=== PATIENT | female | born 1955 | race Caucasian/White ===

== ENCOUNTER 2022-06-13 15:06 | Emergency (ER) | payer MEDICARE, SELFPAY ==
[2022-06-13] VITALS (28 sets, daily range): BP systolic 122–176; BP diastolic 58–84; PULSE 65–84; RESP 24; TEMP 36.5; O2SAT 93–98; BMI 34.9
--- NOTE | 2022-06-13 15:35 | ED.EXTPRO ---
HPI - Extremity Problem General Chief complaint: Extremity Problem,Nontraumatic Stated complaint: post op knee 3 weeks/ Lt. knee swelling/red/pain Time Seen by Provider: 06/13/22 15:35 Source: patient Mode of arrival: Wheelchair History of Present Illness HPI Narrative: 66F non smoker with history hypertension, hyperlipidemia, asthma, GERD and chronic back pain as well as recent of Left total knee arthroplasty at [facility] in [place] by Dr. Lee (3 weeks ago) presents for evaluation about 1 week increased swelling and pain in her left knee that is now feeling tight. She denies any falls, twists or traumatic injuries. She is had no drainage and states the incision continues to look well. She is had increasing pain, particularly with ambulation and has decreased range of motion through the knee compared to her postoperative follow-up. She still does have about 45? of passive and active flexion. She denies any red streaks up her leg. She does feel the pain down into her calf. She denies any fever, chills nor nausea or vomiting Related Data Allergies Allergy/AdvReac Type Severity Reaction Status Date / Time atorvastatin [From Lipitor] Allergy Verified 06/13/22 15:26 Beta-Blockers Allergy Verified 06/13/22 15:26 (Beta-Adrenergic Bloc cat dander Allergy Verified 06/13/22 15:26 cucumber Allergy Verified 06/13/22 15:26 duloxetine Allergy Verified 06/13/22 15:26 oxycodone [From Percocet] Allergy Verified 06/13/22 17:06 paroxetine [From Paxil] Allergy Verified 06/13/22 15:26 prochlorperazine Allergy Verified 06/13/22 15:26 [From Compazine] promethazine Allergy Verified 06/13/22 15:26 Sulfa (Sulfonamide Allergy Verified 06/13/22 15:26 Antibiotics) Review of Systems Review of Systems Narrative: GENERAL: See HPI HEENT: Denies sinus pain, ear pain, sore throat, difficulty swallowing, dizziness. RESPIRATORY: Denies dyspnea, cough, wheezing, hemoptysis, sputum. CARDIOVASCULAR: Denies chest pain, palpitations, orthopnea, edema, GASTROINTESTINAL: Denies nausea, vomiting, abdominal pain, diarrhea, constipation, melena. : Denies dysuria, frequency, incontinence, hematuria, urinary retention. MUSCULOSKELETAL: See HPI SKIN: See HPI NEUROLOGIC: Denies weakness, headache, numbness, change in speech, confusion, seizures, incoordination. PSYCHIATRIC: No concerning psychosocial issues. 12 point review of systems is negative except for those stated above Patient History Social History Smoking Status: Former smoker Smoking Status: Former smoker alcohol intake frequency: 0-2 drinks per day Alcohol type: wine Substance Use Type: does not use Exam Narrative Exam Narrative: GENERAL: 66 [] year old patient appears stated age. Well-developed patient, in mild distress. HEAD: Atraumatic. Normocephalic. EYES: Pupils equal round and reactive. Extraocular motions intact. No scleral icterus. No injection or drainage. ENT: Nose without bleeding, purulent drainage. Throat without erythema, tonsillar hypertrophy or exudate. Airway patent. NECK: Trachea midline. Non tender CARDIOVASCULAR: Regular rate and rhythm without murmurs, gallops, or rubs. RESPIRATORY: Clear to auscultation. Breath sounds equal bilaterally. No wheezes, rales, or rhonchi. GASTROINTESTINAL: Abdomen soft, non-tender, nondistended. EXTREMITIES: Left knee pain, swelling, mild erythema, most notable medial aspect of the knee, no lymphangitis, mild effusion. Incision is clean, dry and intact. Decreased range of motion secondary to what patient reports as fullness rather than significant pain, negative Homans sign, negative calf squeeze BACK: Nontender without deformity or crepitance. No flank tenderness. NEURO: AOx3. SKIN: No rash or erythema of visible areas Initial Vital Signs Initial Vital Signs: Vital Signs Temperature 97.7 F 06/13/22 15:26 Pulse Rate 81 06/13/22 15:26 Respiratory Rate 24 06/13/22 15:26 Blood Pressure 125/59 L 06/13/22 15:26 Pulse Oximetry 98 06/13/22 15:26 Oxygen Delivery Method 06/13/22 15:26 Course Orders Ordered: ED Orders 06/13/22 15:43 US periph venous low extrem lt Stat XR knee LT 1to2V Stat 06/13/22 17:30 Cell Count w Diff Body Fluid Stat 06/13/22 17:43 BMP [Basic Metabolic Panel] Stat Body Fluid Culture Stat CBC Auto Diff [Complete Blood Count AUTO DIFF] Stat CRP [C-Reactive Protein Quant] Stat ESR [Erythrocyte Sedimentation Rate] Stat Discontinued Medications Acetaminophen (Acetaminophen 325 Mg Tablet) 975 mg PO NOW ONE Stop: 06/13/22 17:09 Last Admin: 06/13/22 17:17 Dose: 975 mg Documented By: RB Consultations Consultation #1: discussed with Dr. Lee (ortho at [facility]), he is in agreement with joint arthrocentesis. Will call back with results. Also, recommends CBC, BMP, ESR, CRP Time: 17:15 Vital Signs Vital signs: Vital Signs - 8 hr 06/13/22 15:26 06/13/22 15:54 06/13/22 15:42 Temperature 97.7 F Pulse Rate 81 Pulse Rate [Left Dorsalis Pedis] 74 Respiratory Rate 24 Blood Pressure 125/59 L 147/83 H Pulse Oximetry 98 Oxygen Delivery Method Room Air 06/13/22 15:42 06/13/22 16:00 06/13/22 16:10 Temperature Pulse Rate 84 77 76 Pulse Rate [Left Dorsalis Pedis] Respiratory Rate Blood Pressure Pulse Oximetry 96 96 97 Oxygen Delivery Method 06/13/22 16:12 06/13/22 16:12 06/13/22 16:20 Temperature Pulse Rate 82 69 Pulse Rate [Left Dorsalis Pedis] Respiratory Rate Blood Pressure 128/66 Pulse Oximetry 97 97 Oxygen Delivery Method 06/13/22 16:21 06/13/22 16:21 06/13/22 16:30 Temperature Pulse Rate 69 Pulse Rate [Left Dorsalis Pedis] Respiratory Rate Blood Pressure 132/66 123/59 L Pulse Oximetry 98 Oxygen Delivery Method 06/13/22 16:30 06/13/22 16:40 06/13/22 16:40 Temperature Pulse Rate 71 70 Pulse Rate [Left Dorsalis Pedis] Respiratory Rate Blood Pressure 122/59 L Pulse Oximetry 97 96 Oxygen Delivery Method 06/13/22 16:50 06/13/22 16:50 06/13/22 17:00 Temperature Pulse Rate 70 Pulse Rate [Left Dorsalis Pedis] Respiratory Rate Blood Pressure 126/60 127/58 L Pulse Oximetry 97 Oxygen Delivery Method 06/13/22 17:00 06/13/22 17:10 06/13/22 17:10 Temperature Pulse Rate 66 66 Pulse Rate [Left Dorsalis Pedis] Respiratory Rate Blood Pressure 126/61 Pulse Oximetry 97 95 Oxygen Delivery Method 06/13/22 17:20 06/13/22 17:30 06/13/22 17:40 Temperature Pulse Rate 69 69 70 Pulse Rate [Left Dorsalis Pedis] Respiratory Rate Blood Pressure Pulse Oximetry 96 95 94 Oxygen Delivery Method 06/13/22 17:50 06/13/22 17:50 06/13/22 18:00 Temperature Pulse Rate 65 Pulse Rate [Left Dorsalis Pedis] Respiratory Rate Blood Pressure 126/63 123/61 Pulse Oximetry 96 Oxygen Delivery Method 06/13/22 18:00 06/13/22 18:10 06/13/22 18:11 Temperature Pulse Rate 66 67 Pulse Rate [Left Dorsalis Pedis] Respiratory Rate Blood Pressure 149/66 H Pulse Oximetry 96 95 Oxygen Delivery Method 06/13/22 18:11 Temperature Pulse Rate 67 Pulse Rate [Left Dorsalis Pedis] Respiratory Rate Blood Pressure Pulse Oximetry 94 Oxygen Delivery Method MDM - Extremity (Nontraumatic) Lab Data 06/13/22 17:43 06/13/22 17:43 Labs: Lab Results 06/13/22 06/13/22 06/13/22 Range/Units 17:30 17:43 17:43 WBC 7.0 (4.5-11.0) X10^3/uL RBC 3.56 L (4.0-5.2) X10^6/uL Hgb 11.5 L (12.0-16.0) g/dL Hct 33.9 L (36-46) % MCV 95.1 (80-100) fL MCH 32.2 (26-34) PG MCHC 33.8 (30-36) % RDW 14.5 (11.6-14.8) % Plt Count 250 (150-400) X10^3/uL Neut % (Auto) 52.7 (50-75) % Lymph % (Auto) 32.1 (25-40) % [place] % (Auto) 8.7 (3-14) % Eos % (Auto) 5.9 H (2-4) % Baso % (Auto) 0.6 (0-2) % Neut # (Auto) 3700 (8170-5336) /uL Lymph # (Auto) 2200 (6130-5756) /uL [place] # (Auto) 600 (0-900) /uL Eos # (Auto) 400 (0-450) /uL Baso # (Auto) 0 (0-100) /uL Sodium 137 (137-145) mmol/L Potassium 3.5 (3.4-5.1) mmol/L Chloride 99 (98-107) mmol/L Carbon Dioxide 30 (22-32) mmol/L BUN 29 H (7-17) mg/dL Creatinine 0.63 (0.52-1.04) mg/dL Estimated GFR > 60 (>60) mL/min BUN/Creatinine Ratio 46.0 H (6-22) Glucose 125 H (80-110) mg/dL Calcium 8.9 (8.4-10.2) mg/dL C-Reactive Protein < 0.5 (<1.0) mg/dL Fluid Color Yellow Fluid Appearance Hazy Fluid RBC 9158 /uL Fld Tot Nucleated Cell 204 /uL Body Fluid Clot No clots present Imaging Data Extremity x-ray #1: Radiologist's Impression: [address] [address] XRay Report Signed Patient: Cynthia Rodriguez MR#: [id number] : 1955 Acct:[id number] Age/Sex: 66 / F Date of Service: 06/13/22 Loc: ED Accession Number: [id number] ?? Procedure: XR knee LT 1to2V Ordering Provider: Soto Martinez D.O. PROCEDURE:? XR KNEE LT 1TO2V ? INDICATIONS:? pain, swelling, redness, post op 3 weeks ? TECHNIQUE:? 2 views of the knee were acquired.? ? COMPARISON:? [facility], , PERIPH VENOUS LOW EXTREM LT, 06/13/2022, 16:13. ? FINDINGS:? ? Bones:? No fractures or dislocations.? No suspicious bony lesions.? ? Left knee arthroplasty hardware is seen.? No findings of hardware failure or hardware loosening are seen.? ? Soft tissues:? There is a mild joint effusion.? No suspicious soft tissue calcifications. ? ? ? IMPRESSION:? Mild left knee joint effusion. ? Left knee arthroplasty hardware. ? ? Dictated by: Shane Tijerina M.D. on 06/13/2022 at 15:44 ? ? Approved by: Shane Tijerina M.D. on 06/13/2022 at 15:45 ? US - DVT: Radiologist's Impression: Cynthia Rodriguez??66??F??1955 ? Allergy/Adv: atorvastatin, Beta-Blockers (Beta-Adrenergic Bloc, cat dander, cucumber, duloxetine, oxycodone, paroxetine, prochlorperazine, promethazine, Sulfa (Sulfonamide Antibiotics) (More??) Close Vascular Ultrasound (Signed) Shane Tijerina - 06/13/22 Knee X-Ray (Signed) Shane Tijerina - 06/13/22 Knee X-Ray (Cancelled) 06/13/22 Foot X-Ray (Cancelled) 06/13/22 Launch?[place] [address] Ultrasound Report Signed Patient: Cynthia Rodriguez MR#: [id number] : 1955 Acct:[id number] Age/Sex: 66 / F Date of Service: 06/13/22 Loc: ED Accession Number: [id number] ?? Procedure: US periph venous low extrem lt Ordering Provider: Soto Martinez D.O. PROCEDURE:? US PERIPH VENOUS LOW EXTREM LT ? INDICATIONS:? PAIN, EDEMA 3 WEEKS POST LEFT TKA ? TECHNIQUE:? Real-time imaging, as well as color and pulse Doppler interrogation, were performed of the lower extremity deep veins from the inguinal ligament to the popliteal fossa.? ? COMPARISON:? [facility], CR, XR KNEE LT 1TO2V, 06/13/2022, 15:46. ? FINDINGS:? The common femoral, femoral and popliteal veins are normally compressible, and free of intraluminal thrombus.? Color and pulse Doppler demonstrate normal phasic intraluminal flow.? There is normal augmentation response to distal compression maneuver. ? ? IMPRESSION:? ? Negative for deep venous thrombosis. ? ? Dictated by: Shane Tijerina M.D. on 06/13/2022 at 15:43 ? ? Approved by: Shane Tijerina M.D. on 06/13/2022 at 15:44 ? MDM Narrative Medical decision making narrative: CC: 66-year-old female with left knee pain, swelling and redness, increasing over the past week, worse than postoperative follow-up, recent total left knee Complicating co-morbidities: Age, hypertension, hyperlipidemia, asthma, BMI 34.9 Data collected from: Patient Medical records reviewed: None available in our EMR Differential considered, but not limited to: DVT, cellulitis, septic arthritis versus other Exam documented above, pertinent findings include: Pain, swelling, minimal redness left knee. Incision clean, dry and intact Lab Test results independently reviewed as above. Pertinent findings: Imaging studies independently reviewed: X-ray with mild effusion, hardware intact, ultrasound without evidence of DVT Consultations: Dr. Lee (Ortho at [facility]). Labs, imaging reassuring. NO ABX now, short term follow up and typical return precautions Treatments: Tylenol Re-evaluations: Improved after the above Discussion: 66-year-old female 3 weeks removed from left total knee arthroplasty with a few days of increasing pain, swelling and redness. She has increased pain with ambulation and some limited range of motion but can take her knee through about 45 knees of flexion before she states the swelling prevents further motion as opposed to pain. She is had no systemic complaints such as fever, chills nor nausea or vomiting. Multiple diagnoses considered including cellulitis, DVT, septic arthritis. As mentioned above labs are very reassuring and there is no leukocytosis, left shift, elevation in inflammatory markers and only a few 100 total nucleated cells in the synovial fluid. Ultrasound shows no DVT and x-ray shows only a small effusion with intact hardware. No antibiotics indicated at this time, patient counseled in close follow-up and short wick for return with extensive discussion of return precautions. Patient and agree with and understand the plan Disposition: see below, along with detailed discharge instructions that have been reviewed with patient as well as indications for ED re-evaluation and additional outpatient follow up Discharge Plan Departure Patient Disposition: Home Clinical Impression: Post-operative pain Instructions: DI for Knee Pain Activity Restrictions/Additional Instructions: *You have been diagnosed with [left knee pain and swelling, as we discussed your history and physical exam are reassuring and both the blood work and the fluid analysis from your knee are very reassuring would suggest against infection within the joint. Furthermore, your x-ray suggest the hardware is in place and ultrasound rules out clot] *What to do: *Please continue to take your regular medications as directed. *Please expect to hear from Dr. Lee's office either tomorrow, or both and they will let you know how to proceed, likely a follow-up as soon as Sunday *Return to Emergency Department if you should have any new, worsening or concerning symptoms, such as [fever greater than 101 F, shaking chills, worsening pain, persistent vomiting or other bothersome symptoms] Referrals: Telly Dodge DO [Primary Care Provider] - Stand Alone Forms: Patient Portal/API
--- NOTE | 2022-06-13 15:43 | DI.US.S_ITS ---
PROCEDURE: US PERIPH VENOUS LOW EXTREM LT INDICATIONS: PAIN, EDEMA 3 WEEKS POST LEFT TKA TECHNIQUE: Real-time imaging, as well as color and pulse Doppler interrogation, were performed of the lower extremity deep veins from the inguinal ligament to the popliteal fossa. COMPARISON: [facility], CR, XR KNEE LT 1TO2V, 06/13/2022, 15:46. FINDINGS: The common femoral, femoral and popliteal veins are normally compressible, and free of intraluminal thrombus. Color and pulse Doppler demonstrate normal phasic intraluminal flow. There is normal augmentation response to distal compression maneuver. IMPRESSION: Negative for deep venous thrombosis. Dictated by: Shane Tijerina M.D. on 06/13/2022 at 15:43 Approved by: Shane Tijerina M.D. on 06/13/2022 at 15:44
--- NOTE | 2022-06-13 15:43 | DI.RAD.S_ITS ---
PROCEDURE: XR KNEE LT 1TO2V INDICATIONS: pain, swelling, redness, post op 3 weeks TECHNIQUE: 2 views of the knee were acquired. COMPARISON: [facility], , PERIP VENOUS LOW EXTREM LT, 06/13/2022, 16:13. FINDINGS: Bones: No fractures or dislocations. No suspicious bony lesions. Left knee arthroplasty hardware is seen. No findings of hardware failure or hardware loosening are seen. Soft tissues: There is a mild joint effusion. No suspicious soft tissue calcifications. IMPRESSION: Mild left knee joint effusion. Left knee arthroplasty hardware. Dictated by: Shane Tijerina M.D. on 06/13/2022 at 15:44 Approved by: Shane Tijerina M.D. on 06/13/2022 at 15:45
[2022-06-13] MEDS: ACETAMINOPHEN 325 MG TABLET 975 MG PO (17:17)
[2022-06-13 18:22] LABS: Blood Urea Nitrogen 29 mg/dL (7-17); C-Reactive Protein Quant < 0.5 mg/dL (<1.0); Calcium 8.9 mg/dL (8.4-10.2); Carbon Dioxide 30 mmol/L (22-32); Chloride 99 mmol/L (98-107); Estimated Glomerular Filt Rate > 60 mL/min (>60); Glucose 125 mg/dL (80-110); HEMOLYSIS < 15 (0-50); Potassium 3.5 mmol/L (3.4-5.1); Sodium 137 mmol/L (137-145)
[2022-06-13 18:27] LABS: Body Fluid Red Blood Cells 9158 /uL; Body Fluid Tot Nucleated Cells 204 /uL
[2022-06-13 18:38] LABS: Add Manual Diff / Slide Review NO; Basophils Absolute Auto 0 /uL (0-100); Basophils Percent Auto 0.6 % (0-2); Eosinophils Absolute Auto 400 /uL (0-450); Eosinophils Percent Auto 5.9 % (2-4); Hematocrit 33.9 % (36-46); Hemoglobin 11.5 g/dL (12.0-16.0); Lymphocytes Absolute Auto 2200 /uL (1100-4500); Lymphocytes Percent Auto 32.1 % (25-40); Mean Corpuscular HGB Conc 33.8 % (30-36); Mean Corpuscular Hemoglobin 32.2 PG (26-34); Mean Corpuscular Volume 95.1 fL (80-100); Monocytes Absolute Auto 600 /uL (0-900); Monocytes Percent Auto 8.7 % (3-14); Neutrophils Absolute Auto 3700 /uL (1500-7000); Neutrophils Percent Auto 52.7 % (50-75); Platelet Count 250 X10^3/uL (150-400); Red Blood Cell Count 3.56 X10^6/uL (4.0-5.2); Red Cell Distribution Width 14.5 % (11.6-14.8)
[2022-06-13 18:44] LABS: Body Fluid Appearance HAZY; Body Fluid Clotted? NO CLOTS PRESENT; Body Fluid Color YELLOW
[2022-06-13 19:16] LABS: Mononuclear WBC Body Fluid 64 %; Polynuclear WBC Body Fluid 36 %
[2022-06-13 19:17] LABS: Erythrocyte Sedimentation Rate 31 MM/HR (0-20)
== END 2022-06-13 19:17 | disposition home or self-care (01) ==
PROVIDERS: Emergency Provider Emergency Medicine; PCP Family Medicine
DX: G89.18 Other acute postprocedural pain (principal); R60.0 Localized edema; Z96.652 Presence of left artificial knee joint
CPT/HCPCS: 36415; 73560; 80048; 85025; 85651; 86140; 87070; 87075; 87205; 89051; 93971; 99284

== ENCOUNTER 2022-09-03 10:15 | Emergency (ER) | payer BC, MEDICARE, SELFPAY ==
[2022-09-03 10:43] VITALS: BP 142/65; PULSE 60; RESP 16; TEMP 36.6; O2SAT 95; BMI 35.3
[2022-09-03 11:08] LABS: Appearance Urine UA CLEAR; Bilirubin Urine UA NEGATIVE (NEGATIVE); Color Urine UA YELLOW; Glucose Urine UA NEGATIVE (Negative); Ketones Urine UA NEGATIVE (NEGATIVE); Leukocyte Esterase Urine UA NEGATIVE (NEGATIVE); Nitrite Urine UA NEGATIVE (Negative); Occult Blood Urine UA NEGATIVE (Negative); Protein Urine UA NEGATIVE (Negative); Urobilinogen Urine UA 0.2 E.U./dL (0.2)
[2022-09-03 11:10] LABS: pH Urine UA 7.5 (4.5-8.0)
[2022-09-03 11:28] LABS: Bacteria Urine Occasional (0-1); Culture Indicated Urine Cult Not Indicated; RBC Urine None Seen (0-5/HPF); Squamous Epithelial Cell Urine 1-5 /HPF (0-5/HPF); WBC Urine 0-1/HPF (0-5/HPF)
--- NOTE | 2022-09-03 12:52 | PC.NURSE ---
pt reports she has had some mild back pain for about one week on the right side but she went dancing yesterday and suddenly at 1600 the pain was unbearable. she tried heat and tylenol with little relief. states urine and bowels have been normal. sitting makes her feel worse, laying down feels better.
[2022-09-03] MEDS: KETOROLAC 30 MG/ML VIAL IM (13:00)
--- NOTE | 2022-09-03 13:44 | ED_ITS ---
HPI - Back Pain/Injury <Bonnie Lee PA-C - Last Filed: 09/03/22 20:13> General Chief Complaint: Back Pain/Injury Stated Complaint: flank back and abd pain Time Seen by Provider: 09/03/22 12:41 History of Present Illness HPI Narrative: Patient is a 66-year-old female with chronic conditions of high blood pressure, hyperlipidemia, asthma, reflux and previous diagnosis of RCC and previous kidney stones presenting for evaluation of sudden onset of right flank pain starting at 4:00 p.m. yesterday. She states that the only thing she can think of doing di fferently prior was dancing with a friend 1 week ago. She denies any change to her bowel movements nor pain with urination or blood on urination. She says the pain starts in her right lower back and says it radiates straight through into her right groin. She reports she did have a kidney stone several years ago. Of note, she did have left knee surgery this past May and says she favors her left knee due to continued swelling and pain. She denies fever, body aches or chills. She denies any numbness radiating into her right leg nor abdominal pain. She says that lying down helps the pain feel better as well as standing and leaning forward. She reports the ketorolac given to her helped take the edge off her pain. She notes that her mother and her sister were both diagnosed with RCC and had their kidney taken out. She says that at that time 2 years ago, she was diagnosed as well, but the urologist wanted to monitor her instead of taking action at that time. She says she was unable to follow up for the past 2 years because she got busy. Related Data Previous Rx's Medication Instructions Recorded cyclobenzaprine 5 mg tablet 5 mg PO TID PRN muscle spasm #20 09/03/22 tabs Allergies Allergy/AdvReac Type Severity Reaction Status Date / Time atorvastatin [From Lipitor] Allergy Verified 06/13/22 15:26 Beta-Blockers Allergy Verified 06/13/22 15:26 (Beta-Adrenergic Bloc cat dander Allergy Verified 06/13/22 15:26 cucumber Allergy Verified 06/13/22 15:26 duloxetine Allergy Verified 06/13/22 15:26 oxycodone [From Percocet] Allergy Verified 06/13/22 17:06 paroxetine [From Paxil] Allergy Verified 06/13/22 15:26 prochlorperazine Allergy Verified 06/13/22 15:26 [From Compazine] promethazine Allergy Verified 06/13/22 15:26 Sulfa (Sulfonamide Allergy Verified 06/13/22 15:26 Antibiotics) Review of Systems <Bonnie Lee PA-C - Last Filed: 09/03/22 20:13> Review of Systems Narrative: per HPI Patient History <Bonnie Lee PA-C - Last Filed: 09/03/22 20:13> Social History Smoking Status: Former smoker Smoking Status: Former smoker alcohol intake frequency: 0-2 drinks per day Alcohol type: wine Substance Use Type: does not use Exam <Bonnie Lee PA-C - Last Filed: 09/03/22 20:13> Initial Vital Signs Initial Vital Signs: Vital Signs Temperature 97.9 F 09/03/22 10:43 Pulse Rate 60 09/03/22 10:43 Respiratory Rate 16 09/03/22 10:43 Blood Pressure 142/65 H 09/03/22 10:43 Pulse Oximetry 95 09/03/22 10:43 Oxygen Delivery Method Room Air 09/03/22 10:43 GENERAL: 66 year old patient appears stated age. Well-developed patient, in no acute distress. HEAD: Atraumatic. Normocephalic. EYES: Pupils equal round and reactive. Extraocular motions intact. No scleral icterus. No injection or drainage. NECK: Trachea midline. CARDIOVASCULAR: Regular rate and rhythm without murmurs, gallops, or rubs. RESPIRATORY: Clear to auscultation. Breath sounds equal bilaterally. No wheezes, rales, or rhonchi. GASTROINTESTINAL: Abdomen soft, non-tender, nondistended. EXTREMITIES: No edema or joint tenderness. Pain in right lower back with right hip flexion and back flexion and extension BACK: Right CVA tenderness, pain with motion, tenderness to palpation around L1-L2 NEURO: AOx3. SKIN: No rash or erythema of visible areas <Lenora David DO - Last Filed: 09/08/22 07:34> Initial Vital Signs Initial Vital Signs: Vital Signs Temperature 97.9 F 09/03/22 10:43 Pulse Rate 60 09/03/22 10:43 Respiratory Rate 16 09/03/22 10:43 Blood Pressure 142/65 H 09/03/22 10:43 Pulse Oximetry 95 09/03/22 10:43 Oxygen Delivery Method Room Air 09/03/22 10:43 Course <Bonnie Lee PA-C - Last Filed: 09/03/22 20:13> Orders Ordered: Discontinued Medications Hydrocodone Bitart/Acetaminophen (Hydrocodone/Acet 5/325 Tablet) 2 tab PO NOW ONE Stop: 09/03/22 14:05 Last Admin: 09/03/22 14:11 Dose: 2 tab Documented By: PILAR Ketorolac Tromethamine (Ketorolac 30 Mg/Ml Vial) 30 mg IM NOW ONE Stop: 09/03/22 12:47 Last Admin: 09/03/22 13:00 Dose: 15 mg Documented By: NR Vital Signs Vital signs: Vital Signs - 8 hr 09/03/22 16:47 Pulse Rate 55 L Blood Pressure 187/86 H Pulse Oximetry 97 Oxygen Delivery Method Room Air <Lenora Daivd DO - Last Filed: 09/08/22 07:34> Orders Ordered: Discontinued Medications Hydrocodone Bitart/Acetaminophen (Hydrocodone/Acet 5/325 Tablet) 2 tab PO NOW ONE Stop: 09/03/22 14:05 Last Admin: 09/03/22 14:11 Dose: 2 tab Documented By: PILAR Ketorolac Tromethamine (Ketorolac 30 Mg/Ml Vial) 30 mg IM NOW ONE Stop: 09/03/22 12:47 Last Admin: 09/03/22 13:00 Dose: 15 mg Documented By: NR Vital Signs Vital signs: Vital Signs - 8 hr 09/03/22 16:47 Pulse Rate 55 L Blood Pressure 187/86 H Pulse Oximetry 97 Oxygen Delivery Method Room Air MDM - Back Pain/Injury <Bonnie Lee PA-C - Last Filed: 09/03/22 20:13> Lab Data 09/03/22 14:25 09/03/22 14:25 Labs: Lab Results 09/03/22 09/03/22 09/03/22 Range/Units 10:55 14:25 14:25 WBC 7.6 (4.5-11.0) X10^3/uL RBC 4.34 (4.0-5.2) X10^6/uL Hgb 13.6 (12.0-16.0) g/dL Hct 39.9 (36-46) % MCV 92.0 (80-100) fL MCH 31.3 (26-34) PG MCHC 34.1 (30-36) % RDW 14.0 (11.6-14.8) % Plt Count 268 (150-400) X10^3/uL Neut % (Auto) 61.4 (50-75) % Lymph % (Auto) 30.7 (25-40) % [place] % (Auto) 5.8 (3-14) % Eos % (Auto) 1.3 L (2-4) % Baso % (Auto) 0.8 (0-2) % Neut # (Auto) 4700 (7280-7732) /uL Lymph # (Auto) 2300 (3351-7185) /uL [place] # (Auto) 400 (0-900) /uL Eos # (Auto) 100 (0-450) /uL Baso # (Auto) 100 (0-100) /uL Sodium 135 L (137-145) mmol/L Potassium 4.3 (3.4-5.1) mmol/L Chloride 100 (98-107) mmol/L Carbon Dioxide 27 (22-32) mmol/L BUN 21 H (7-17) mg/dL Creatinine 0.57 (0.52-1.04) mg/dL Estimated GFR > 60 (>60) mL/min BUN/Creatinine Ratio 36.8 H (6-22) Glucose 116 H (80-110) mg/dL Calcium 9.4 (8.4-10.2) mg/dL Total Bilirubin 0.5 (0.2-1.3) mg/dL AST 29 (14-36) IU/L ALT 36 H (<35) IU/L Alkaline Phosphatase 57 (38-126) U/L Total Protein 7.6 (6.3-8.2) g/dL Albumin 4.2 (3.5-5.0) g/dL Globulin 3.4 (1.7-4.1) g/dL Albumin/Globulin Ratio 1.2 (1.0-2.8) Lipase (23-300) U/L Urine Color Yellow Urine Appearance Clear Urine pH 7.5 (4.5-8.0) Ur Specific [place] 1.020 (1.000-1.035) Urine Protein Negative (Negative) Urine Glucose (UA) Negative (Negative) g/dL Urine Ketones Negative (NEGATIVE) Urine Occult Blood Negative (Negative) Urine Nitrate Negative (Negative) Urine Bilirubin Negative (NEGATIVE) Urine Urobilinogen 0.2 (0.2) E.U./dL Ur Leukocyte Esterase Negative (NEGATIVE) Urine RBC None seen (0-5/HPF) Urine WBC 0-1/hpf (0-5/HPF) Ur Squamous Epith Cells 1-5 /hpf (0-5/HPF) Urine Bacteria Occasional (0-1) (None) Ur Culture Indicated? Cult not indicated 09/03/22 Range/Units 14:25 WBC (4.5-11.0) X10^3/uL RBC (4.0-5.2) X10^6/uL Hgb (12.0-16.0) g/dL Hct (36-46) % MCV (80-100) fL MCH (26-34) PG MCHC (30-36) % RDW (11.6-14.8) % Plt Count (150-400) X10^3/uL Neut % (Auto) (50-75) % Lymph % (Auto) (25-40) % [place] % (Auto) (3-14) % Eos % (Auto) (2-4) % Baso % (Auto) (0-2) % Neut # (Auto) (4085-5660) /uL Lymph # (Auto) (8179-3963) /uL [place] # (Auto) (0-900) /uL Eos # (Auto) (0-450) /uL Baso # (Auto) (0-100) /uL Sodium (137-145) mmol/L Potassium (3.4-5.1) mmol/L Chloride (98-107) mmol/L Carbon Dioxide (22-32) mmol/L BUN (7-17) mg/dL Creatinine (0.52-1.04) mg/dL Estimated GFR (>60) mL/min BUN/Creatinine Ratio (6-22) Glucose (80-110) mg/dL Calcium (8.4-10.2) mg/dL Total Bilirubin (0.2-1.3) mg/dL AST (14-36) IU/L ALT (<35) IU/L Alkaline Phosphatase (38-126) U/L Total Protein (6.3-8.2) g/dL Albumin (3.5-5.0) g/dL Globulin (1.7-4.1) g/dL Albumin/Globulin Ratio (1.0-2.8) Lipase 106 (23-300) U/L Urine Color Urine Appearance Urine pH (4.5-8.0) Ur Specific [place] (1.000-1.035) Urine Protein (Negative) Urine Glucose (UA) (Negative) g/dL Urine Ketones (NEGATIVE) Urine Occult Blood (Negative) Urine Nitrate (Negative) Urine Bilirubin (NEGATIVE) Urine Urobilinogen (0.2) E.U./dL Ur Leukocyte Esterase (NEGATIVE) Urine RBC (0-5/HPF) Urine WBC (0-5/HPF) Ur Squamous Epith Cells (0-5/HPF) Urine Bacteria (None) Ur Culture Indicated? Imaging Data CT scan - abdomen/pelvis: Radiologist's Impression: PROCEDURE:? CT ABDOMEN PELVIS W CON ? INDICATIONS:? flank pain, hx RCC never followed up. ? TECHNIQUE:? After the administration of intravenous contrast, axial sections acquired from the lung bases to the pubic symphysis.? Coronal and sagittal reformats were performed.? For radiation dose reduction, the following was used:? automated exposure control, adjustment of mA and/or kV according to patient size.? ? COMPARISON:? None. ? FINDINGS:? Image quality:? Excellent.? ? Lung bases:? Unremarkable. Heart:? No significant findings. ? ABDOMEN: Liver:? Unremarkable.? ? Gallbladder:? Normal Biliary ducts:? Unremarkable.? ? Pancreas:? Unremarkable.? ? Spleen:? Unremarkable.? ? Adrenal Glands:? Unremarkable.? ? Kidneys and Ureters:? Mild right perinephric fat stranding.? No hydronephrosis.? Punctate left cortical renal calcifications.? Within the inferior pole of the right kidney there is a partially exophytic septated cystic mass measuring 1.9 cm.? With indeterminate density.? ? ? Stomach and Bowel:? Stomach, small bowel loops, and colon are unremarkable.? A few colonic diverticula without evidence of acute diverticulitis Peritoneum:? No abnormal intraperitoneal fluid.? No free air.? ? Ventral Wall: ? No hernias.? Abdominal Nodes:? No retroperitoneal or mesenteric adenopathy by size criteria.? Vessels:? Aorta and inferior vena cava are normal in size.? ? PELVIS: Pelvic Organs:? Unremarkable.? ? Bladder:? Unremarkable.? ? Pelvic Nodes: No enlarged lymph nodes.? Miscellaneous: No hernias are seen. ? ? ? Bones:? Grade 1 anterior listhesis of L5 on S1.? Large Schmorl node and mild hei ght loss of L2 with vacuum disc phenomenon suggesting chronic etiology.? No suspicious osseous lesion. ? ? IMPRESSION:? ? 1. No hydronephrosis. 2. Nonobstructive left nephrolithiasis. 3. Indeterminate density within the right inferior kidney.? Recommend dedicated nonemergent renal MRI.? ? Dictated by: Ronak Leslie M.D. on 09/03/2022 at 14:02 ? ? Approved by: Ronak Leslie M.D. on 09/03/2022 at 14:10 ? MDM Narrative Medical decision making narrative: CC: This is a new problem, uncertain diagnosis possible systemic effects Complicating co-morbidities: high blood pressure, hyperlipidemia, asthma, reflux and previous diagnosis of RCC and previous kidney stones Corroborating data: Data collected from: patient, Social determinants of health that may influence the patients condition: Medical records reviewed: Reviewed patient's phone report of CT scan 2 years ago describing left renal mass. Differential considered: Kidney stone, RCC, muscle spasm Exam documented above, pertinent findings include: Tenderness to palpation of right lower back, focal spinal tenderness around L4/5, with right hip flexion Lab Test results independently reviewed as above. Pertinent findings: Creatinine was 0.57. White count was within normal limits at 7.6 Imaging studies independently reviewed: See above Consultations: Discussed case with Dr. David. Treatments: Treated with 15 mg Toradol and 10 mg of hydrocodone/APAP Re-evaluations: Improvement in back pain with Toradol and hydrocodone. Discussion: Discussed with patient that her back pain may be due in part to the anterior listhesis of L5 on S1. However, we did discuss that she does have a mass noted in her right lower kidney, and she needs to follow up with Urology about this a sat. I recommend that she treat her current pain with Tylenol and ibuprofen, warm packs and gentle [id number] exercises as tolerated. She may need to continue follow up with the primary care provider to decide if physical therapy would be unnecessary mode of treatment for her. Of utmost importance, I do recommend she follow up for continued evaluation of possible growing renal cell carcinoma which she was previously diagnosed with 2 years ago. She verbalizes understanding and is agreeable to plan of care. Disposition: see below, along with detailed discharge instructions that have been reviewed with patient as well as indications for ED re-evaluation and additional outpatient follow up <Lenora David DO - Last Filed: 09/08/22 07:34> Lab Data Labs: Lab Results 09/03/22 09/03/22 09/03/22 Range/Units 10:55 14:25 14:25 WBC 7.6 (4.5-11.0) X10^3/uL RBC 4.34 (4.0-5.2) X10^6/uL Hgb 13.6 (12.0-16.0) g/dL Hct 39.9 (36-46) % MCV 92.0 (80-100) fL MCH 31.3 (26-34) PG MCHC 34.1 (30-36) % RDW 14.0 (11.6-14.8) % Plt Count 268 (150-400) X10^3/uL Neut % (Auto) 61.4 (50-75) % Lymph % (Auto) 30.7 (25-40) % [place] % (Auto) 5.8 (3-14) % Eos % (Auto) 1.3 L (2-4) % Baso % (Auto) 0.8 (0-2) % Neut # (Auto) 4700 (5424-2614) /uL Lymph # (Auto) 2300 (2430-0544) /uL [place] # (Auto) 400 (0-900) /uL Eos # (Auto) 100 (0-450) /uL Baso # (Auto) 100 (0-100) /uL Sodium 135 L (137-145) mmol/L Potassium 4.3 (3.4-5.1) mmol/L Chloride 100 (98-107) mmol/L Carbon Dioxide 27 (22-32) mmol/L BUN 21 H (7-17) mg/dL Creatinine 0.57 (0.52-1.04) mg/dL Estimated GFR > 60 (>60) mL/min BUN/Creatinine Ratio 36.8 H (6-22) Glucose 116 H (80-110) mg/dL Calcium 9.4 (8.4-10.2) mg/dL Total Bilirubin 0.5 (0.2-1.3) mg/dL AST 29 (14-36) IU/L ALT 36 H (<35) IU/L Alkaline Phosphatase 57 (38-126) U/L Total Protein 7.6 (6.3-8.2) g/dL Albumin 4.2 (3.5-5.0) g/dL Globulin 3.4 (1.7-4.1) g/dL Albumin/Globulin Ratio 1.2 (1.0-2.8) Lipase (23-300) U/L Urine Color Yellow Urine Appearance Clear Urine pH 7.5 (4.5-8.0) Ur Specific [place] 1.020 (1.000-1.035) Urine Protein Negative (Negative) Urine Glucose (UA) Negative (Negative) g/dL Urine Ketones Negative (NEGATIVE) Urine Occult Blood Negative (Negative) Urine Nitrate Negative (Negative) Urine Bilirubin Negative (NEGATIVE) Urine Urobilinogen 0.2 (0.2) E.U./dL Ur Leukocyte Esterase Negative (NEGATIVE) Urine RBC None seen (0-5/HPF) Urine WBC 0-1/hpf (0-5/HPF) Ur Squamous Epith Cells 1-5 /hpf (0-5/HPF) Urine Bacteria Occasional (0-1) (None) Ur Culture Indicated? Cult not indicated 09/03/22 Range/Units 14:25 WBC (4.5-11.0) X10^3/uL RBC (4.0-5.2) X10^6/uL Hgb (12.0-16.0) g/dL Hct (36-46) % MCV (80-100) fL MCH (26-34) PG MCHC (30-36) % RDW (11.6-14.8) % Plt Count (150-400) X10^3/uL Neut % (Auto) (50-75) % Lymph % (Auto) (25-40) % [place] % (Auto) (3-14) % Eos % (Auto) (2-4) % Baso % (Auto) (0-2) % Neut # (Auto) (4361-7794) /uL Lymph # (Auto) (0710-9087) /uL [place] # (Auto) (0-900) /uL Eos # (Auto) (0-450) /uL Baso # (Auto) (0-100) /uL Sodium (137-145) mmol/L Potassium (3.4-5.1) mmol/L Chloride (98-107) mmol/L Carbon Dioxide (22-32) mmol/L BUN (7-17) mg/dL Creatinine (0.52-1.04) mg/dL Estimated GFR (>60) mL/min BUN/Creatinine Ratio (6-22) Glucose (80-110) mg/dL Calcium (8.4-10.2) mg/dL Total Bilirubin (0.2-1.3) mg/dL AST (14-36) IU/L ALT (<35) IU/L Alkaline Phosphatase (38-126) U/L Total Protein (6.3-8.2) g/dL Albumin (3.5-5.0) g/dL Globulin (1.7-4.1) g/dL Albumin/Globulin Ratio (1.0-2.8) Lipase 106 (23-300) U/L Urine Color Urine Appearance Urine pH (4.5-8.0) Ur Specific [place] (1.000-1.035) Urine Protein (Negative) Urine Glucose (UA) (Negative) g/dL Urine Ketones (NEGATIVE) Urine Occult Blood (Negative) Urine Nitrate (Negative) Urine Bilirubin (NEGATIVE) Urine Urobilinogen (0.2) E.U./dL Ur Leukocyte Esterase (NEGATIVE) Urine RBC (0-5/HPF) Urine WBC (0-5/HPF) Ur Squamous Epith Cells (0-5/HPF) Urine Bacteria (None) Ur Culture Indicated? Discharge Plan Departure Patient Disposition: Home Clinical Impression: Lumbar back pain, Mass of right kidney Activity Restrictions/Additional Instructions: You were seen today for evaluation of right lower back pain. You received CT i maging of the abdomen and pelvis which showed a 1.9 cm mass in your right lower kidney. Due to your previous history of renal cell carcinoma being watched by Urology, I recommend that you follow up as soon as possible with your urologist for renal MRI imaging and continued monitoring of this mass. The source of your back pain, seems most likely due to the subluxation of L5 on S1 and musculoskele rigoberto only related. Treatment for this includes warm packs, muscle relaxers, and ibuprofen and Tylenol. As discussed in the ED, do not drive after taking muscle relaxer prescribed nor take with sleep inducing medication. Please follow up with her primary care provider to ensure continued improvement in pain with conservative therapies or further workup is needed. Thank you for coming to us for your care today. Prescriptions: New cyclobenzaprine 5 mg tablet 5 mg PO TID PRN (Reason: muscle spasm) Qty: 20 0RF Rx Instructions: Do not drive after taking, do not take with sleep inducing meds Referrals: Telly Dodge DO [Primary Care Provider] - Stand Alone Forms: Patient Portal/API <Lenora David DO - Last Filed: 09/08/22 07:34> Cosign ED Attending Ivonne Attestation: I was immediately available in the department for consultation. Documentation has been reviewed.
[2022-09-03] MEDS: HYDROCODONE/ACET 5/325 TABLET 2 TAB PO (14:11)
--- NOTE | 2022-09-03 14:11 | DI.CT.S_ITS ---
PROCEDURE: CT ABDOMEN PELVIS W CON INDICATIONS: flank pain, hx RCC never followed up. TECHNIQUE: After the administration of intravenous contrast, axial sections acquired from the lung bases to the pubic symphysis. Coronal and sagittal reformats were performed. For radiation dose reduction, the following was used: automated exposure control, adjustment of mA and/or kV according to patient size. COMPARISON: None. FINDINGS: Image quality: Excellent. Lung bases: Unremarkable. Heart: No significant findings. ABDOMEN: Liver: Unremarkable. Gallbladder: Normal Biliary ducts: Unremarkable. Pancreas: Unremarkable. Spleen: Unremarkable. Adrenal Glands: Unremarkable. Kidneys and Ureters: Mild right perinephric fat stranding. No hydronephrosis. Punctate left cortical renal calcifications. Within the inferior pole of the right kidney there is a partially exophytic septated cystic mass measuring 1.9 cm. With indeterminate density. Stomach and Bowel: Stomach, small bowel loops, and colon are unremarkable. A few colonic diverticula without evidence of acute diverticulitis Peritoneum: No abnormal intraperitoneal fluid. No free air. Ventral Wall: No hernias. Abdominal Nodes: No retroperitoneal or mesenteric adenopathy by size criteria. Vessels: Aorta and inferior vena cava are normal in size. PELVIS: Pelvic Organs: Unremarkable. Bladder: Unremarkable. Pelvic Nodes: No enlarged lymph nodes. Miscellaneous: No hernias are seen. Bones: Grade 1 anterior listhesis of L5 on S1. Large Schmorl node and mild height loss of L2 with vacuum disc phenomenon suggesting chronic etiology. No suspicious osseous lesion. IMPRESSION: 1. No hydronephrosis. 2. Nonobstructive left nephrolithiasis. 3. Indeterminate density within the right inferior kidney. Recommend dedicated nonemergent renal MRI. Dictated by: Ronak Leslie M.D. on 09/03/2022 at 14:02 Approved by: Ronak Leslie M.D. on 09/03/2022 at 14:10
[2022-09-03 14:38] LABS: Add Manual Diff / Slide Review NO; Basophils Absolute Auto 100 /uL (0-100); Basophils Percent Auto 0.8 % (0-2); Eosinophils Absolute Auto 100 /uL (0-450); Eosinophils Percent Auto 1.3 % (2-4); Hematocrit 39.9 % (36-46); Hemoglobin 13.6 g/dL (12.0-16.0); Lymphocytes Absolute Auto 2300 /uL (1100-4500); Lymphocytes Percent Auto 30.7 % (25-40); Mean Corpuscular HGB Conc 34.1 % (30-36); Mean Corpuscular Hemoglobin 31.3 PG (26-34); Monocytes Absolute Auto 400 /uL (0-900); Monocytes Percent Auto 5.8 % (3-14); Neutrophils Absolute Auto 4700 /uL (1500-7000); Neutrophils Percent Auto 61.4 % (50-75); Platelet Count 268 X10^3/uL (150-400); Red Blood Cell Count 4.34 X10^6/uL (4.0-5.2); White Blood Cell Count 7.6 X10^3/uL (4.5-11.0)
[2022-09-03 14:47] LABS: Lipase 106 U/L (23-300)
[2022-09-03 14:48] LABS: Alanine Aminotransferase 36 IU/L (<35); Albumin 4.2 g/dL (3.5-5.0); Albumin Globulin Ratio 1.2 (1.0-2.8); Alkaline Phosphatase 57 U/L (38-126); Aspartate Aminotransferase 29 IU/L (14-36); BUN Creatinine Ratio 36.8 (6-22); Bilirubin Total 0.5 mg/dL (0.2-1.3); Blood Urea Nitrogen 21 mg/dL (7-17); Calcium 9.4 mg/dL (8.4-10.2); Carbon Dioxide 27 mmol/L (22-32); Chloride 100 mmol/L (98-107); Estimated Glomerular Filt Rate > 60 mL/min (>60); Globulin 3.4 g/dL (1.7-4.1); Glucose 116 mg/dL (80-110); HEMOLYSIS 22 (0-50); Potassium 4.3 mmol/L (3.4-5.1); Sodium 135 mmol/L (137-145); Total Protein 7.6 g/dL (6.3-8.2)
[2022-09-03 16:47] VITALS: BP 187/86; PULSE 55; O2SAT 97
== END 2022-09-03 16:48 | disposition home or self-care (01) ==
PROVIDERS: Emergency Medicine; Emergency Provider Physician Assistant; PCP Family Medicine
DX: M54.50 Low back pain, unspecified (principal); N28.89 Other specified disorders of kidney and ureter; R10.9 Unspecified abdominal pain
CPT/HCPCS: 36415; 74177; 80053; 81001; 83690; 85025; 96372; 99284; J1885; Q9967

== ENCOUNTER → 2022-10-11 11:25 | Outpatient (CLI) | payer OTHER, MEDICARE, SELFPAY ==
--- NOTE | 2022-10-11 | DI.MRI.S_ITS ---
PROCEDURE: MR THORACIC SPINE WO CON INDICATIONS: 66-year-old female with neurologic deficit, history of renal cell carcinoma TECHNIQUE: Noncontrast sagittal T1 spine echo and T2 fast spin echo, sagittal STIR, and T2 fast spin echo through the thoracic spine. COMPARISON: [facility], CT, CT ABDOMEN PELVIS W CON, 09/03/2022, 14:56. [facility], MR, MR CERVICAL SPINE WO CON, 10/11/2022, 11:56. FINDINGS: Image quality: Excellent. Alignment and Curvature: There is normal bony alignment. Bone Marrow: Marrow is of normal overall signal. No acute vertebral body compression fractures. Spinal Cord: Visualized spinal cord is normal in size and signal. No focal hyperintensity Paraspinous Soft Tissues: No paravertebral masses. Miscellaneous: Small central disc protrusion at T7-8 results in indentation of the ventral surface of the cord. No cord edema. Disc bulge and hypertrophic facet joints results in [id number] central stenosis T10-11 Incidental 9 mm nodule the left lower lobe costophrenic sulcus. Bilateral renal cysts measure up to 3.4 cm on the left IMPRESSION: Degenerative disc disease and arthropathy associated with small central protrusion at T7-8 resulting in mild central stenosis with indentation of the ventral surface of the cord. Disc bulge and hypertrophic facet joints results in [id number] central stenosis T10-11 Incidental note is made of a 9 mm pulmonary nodule in the left lower lobe costophrenic sulcus. Consider 3 month follow-up or PET-CT Approved by: Ray Jules M.D. on 10/11/2022 at 15:53
--- NOTE | 2022-10-11 | DI.MRI.S_ITS ---
PROCEDURE: MR CERVICAL SPINE WO CON INDICATIONS: RADIOLOGICALLY ISOLATED SYNDROME TECHNIQUE: Noncontrast sagittal T1 spin echo and T2 fast spin echo, sagittal STIR, foraminal oblique sagittal T2 fast spin echo, and axial gradient echo or T2 fast spin echo through the cervical spine. COMPARISON: None. FINDINGS: Image quality: Excellent. Alignment and Curvature: Grade 1 anterior spondylolisthesis at C7-T1. Straightening normal cervical lordosis noted. Bone Marrow: Marrow demonstrates normal overall signal. Spinal Cord: Visualized spinal cord has normal size and signal. No cerebellar tonsillar herniation. Paraspinous Soft Tissues: No paravertebral masses. Prevertebral soft tissues are normal in thickness. C2-C3: Disc height is preserved. Small posterior osteophyte noted without central or foraminal stenosis. C3-C4: Disc height is maintained. Posterior disc osteophyte results in mild central stenosis. No foraminal stenosis. C4-C5: Disc space narrowing with posterior disc osteophyte complex and hypertrophic facet joints results in moderate central stenosis with flattening the ventral surface of the cord. Moderate bilateral foraminal stenosis. C5-C6: Disc space narrowing and posterior disc osteophyte complex results in moderate central stenosis with flattening of the ventral surface of the cord. Mild right and moderate left foraminal stenosis. C6-C7: Disc space narrowing and posterior disc osteophyte complex results in vmhr-[id number] central stenosis. Moderate bilateral foraminal stenosis. C7-T1: Disc space is relatively preserved. No central stenosis. Hypertrophic uncovertebral joints results in moderate bilateral foraminal stenosis. IMPRESSION: Multilevel degenerative disc disease and arthropathy results in varying degrees of central and foraminal stenosis including moderate foraminal stenosis C4-5 and C5-6 Approved by: Ray Jules M.D. on 10/11/2022 at 15:35
--- NOTE | 2022-10-11 12:07 | DI.MRI.S_ITS ---
PROCEDURE: MR HEAD/BRAIN WO CON INDICATIONS: RADIOLOGICALLY ISOLATED SYNDROME TECHNIQUE: Non-contrast axial T1 spin echo, axial T2 fast spin echo, sagittal and axial FLAIR, coronal T2 fast spin echo, axial gradient echo, axial diffusion and ADC through the brain. COMPARISON: None. FINDINGS: Image quality: Excellent. CSF spaces: Ventricles appear symmetric in size and shape. Basal cisterns are patent. No extra-axial fluid collections. Brain: No intracranial bleeds or mass effects. There is cerebral volume loss for age. There are periventricular and deep white matter chronic small vessel ischemic changes. Brainstem appears normal. Diffusion-weighted images show no acute ischemic insults. No chronic ischemic insults. Normal intravascular flow voids are present. Relatively prominent perivascular spaces are noted. Skull and face: Calvarial bone marrow is normal in signal. Orbits are normal. Sinuses: Sinuses and mastoids are clear. IMPRESSION: Noncontrast brain MRI within normal limits for age. No findings of acute or subacute infarction can be seen. Dictated by: Shane Tijerina M.D. on 10/11/2022 at 11:30 Approved by: Shane Tijerina M.D. on 10/11/2022 at 11:31
== END ==
PROVIDERS: PCP Family Medicine; Referring Provider Psychiatry & Neurology Neurology; Visit Provider Psychiatry & Neurology Neurology
DX: R93.0 Abnormal findings on diagnostic imaging of skull and head, not elsewhere classified (principal); M47.812 Spondylosis without myelopathy or radiculopathy, cervical region; M48.02 Spinal stenosis, cervical region; M50.31 Other cervical disc degeneration, high cervical region; M51.34 Other intervertebral disc degeneration, thoracic region; M47.814 Spondylosis without myelopathy or radiculopathy, thoracic region; M51.24 Other intervertebral disc displacement, thoracic region; M48.04 Spinal stenosis, thoracic region; R91.1 Solitary pulmonary nodule
CPT/HCPCS: 70551; 72141; 72146

== ENCOUNTER → 2022-12-06 12:44 | Outpatient (CLI) | payer OTHER, MEDICARE, SELFPAY ==
--- NOTE | 2022-12-06 | DI.CT.S_ITS ---
PROCEDURE: CT CHEST WO CON INDICATIONS: PULMONARY NODULE TECHNIQUE: Noncontrast 2.0-2.5 mm thick sections acquired from the pulmonary apices to the posterior costophrenic angles. 7 mm thick axial MIP and 5 mm coronal and sagittal reformats were then acquired. A low radiation dose technique was utilized. COMPARISON: None. FINDINGS: Image quality: Diagnostic, given the low radiation dose technique. Lungs and pleura: Bibasilar and lingular atelectasis. Pulmonary nodules as follows: * Left lower lobe nodule, 12 mm, (axial image 180) * Left upper lobe nodule, 2 mm (axial image 84, MIP image 39) * Left upper lobe nodule, 2 mm (axial image 53, MIP image 22) Mediastinum: Heart size is normal. No pericardial effusion. No mediastinal adenopathy by size criteria. Thoracic aorta and central pulmonary arteries are normal in size. Esophagus is normal in caliber. No hiatal hernia. Bones and chest wall: No acute or suspicious osseous lesion. Moderate degenerative changes of the spine. No vertebral body compression fractures. No axillary or supraclavicular adenopathy by size criteria. Thyroid gland Abdomen: Visualized upper abdomen solid organs and bowel loops appear normal in the absence of contrast. IMPRESSION: 1. Left lower lobe 1.2 cm nodule. No comparisons are available for review. Consider CT chest in 3 months for follow-up. Alternatively PET-CT or possible tissue sampling can be performed for further characterization. 2. Two additional 2 mm left upper lobe nodules. Approved by: Lillie Grossman M.D. on 12/08/2022 at 9:37
== END ==
PROVIDERS: PCP Family Medicine; Referring Provider Internal Medicine Hematology & Oncology; Visit Provider Internal Medicine Hematology & Oncology
DX: R91.8 Other nonspecific abnormal finding of lung field (principal)
CPT/HCPCS: 71250

== ENCOUNTER → 2023-05-09 07:48 | Outpatient (CLI) | payer OTHER, MEDICARE, SELFPAY ==
--- NOTE | 2023-05-09 07:52 | DI.US.S_ITS ---
PROCEDURE: US RENAL COMPLETE INDICATIONS: RIGHT RENAL LESION TECHNIQUE: Real-time scanning was performed of the kidneys and bladder, with image documentation. COMPARISON: [facility], CT, CT ABDOMEN PELVIS W CON, 09/03/2022, 14:56. FINDINGS: Kidneys: Kidneys are normal in size. Right kidney measures 10.2 cm long; left kidney measures 9.4 cm long. Right renal cortical thickness is 1.2 cm; left renal cortical thickness is 0.9 cm. There are multiple right renal cysts which have an anechoic appearance. There are multiple anechoic left renal cysts. There is also a simple left parapelvic cyst. An echogenic focus is present within the mid pole of the left kidney which likely corresponds with the fatty mass on the comparison CT dated September 03, 2022 suggesting the presence of a small angiomyolipoma. Bladder: Pre-void bladder volume is 75 mL. Post-void residual was not obtained. Miscellaneous: No free pelvic fluid. IMPRESSION: 1. Multiple bilateral simple appearing renal cysts. No suspicious sonographic features requiring follow-up. 2. 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 Dictated by: Moni Ahuja M.D. on 05/09/2023 at 10:55 Approved by: Moni Ahuja M.D. on 05/09/2023 at 11:00
--- NOTE | 2023-05-09 08:02 | DI.CT.S_ITS ---
PROCEDURE: CT CHEST WO CON INDICATIONS: pulmonary nodule TECHNIQUE: Noncontrast 5 mm thick sections acquired from the pulmonary apices to the posterior costophrenic angles. 1 mm lung window, 5 mm thick coronal and sagittal and 7 mm axial MIP reformats were then acquired. For radiation dose reduction, the following was used: automated exposure control, adjustment of mA and/or kV according to patient size. COMPARISON: [facility], CT, CT ABDOMEN PELVIS W CON, 09/03/2022, 14:56. [facility], CT, CT CHEST WO CON, 12/06/2022, 13:07. FINDINGS: Image quality: Diagnostic. Lower Neck: No enlarged lymph nodes. Thyroid: No thyroid nodules which require sonographic follow up, per consensus guidelines. Axillae: No enlarged lymph nodes. Chest Wall: Coarse right breast calcification. Bones: Unremarkable. Lungs and Pleura: No pneumothorax or pleural effusions. Scattered solid pulmonary nodules. Examples include: -left lower lobe nodule measures 1.4 x 1.0 centimeters, previously 1.3 x 0.9 centimeters (series 3, image 189). This has fat attenuation. -stable 2 millimeter solid nodule, left upper lobe (series 3, image 84). -2 millimeter solid nodule, left lung apex (series 3, image 39). Heart: Heart size is normal. No pericardial effusion. Thoracic Vessels: The aorta and pulmonary arteries demonstrate normal size. Mediastinum and Renetta: No enlarged lymph nodes. Esophagus: No wall thickening. Small hiatal hernia. Upper Abdomen: Visualized upper abdomen solid organs and bowel loops appear normal. IMPRESSION: Sub threshold growth of the left lower lobe nodule, measuring 1.4 x 1.0 centimeter, previously 1.3 x 0.9 centimeter on 09/03/2022. Attenuation favors a benign hamartoma, but given slight interval growth, consider additional 6 month follow-up. Remaining solid pulmonary micro nodules are stable, and presumably benign. Dictated by: Ja Pleitez M.D. on 05/09/2023 at 9:58 Approved by: Ja Pleitez M.D. on 05/09/2023 at 10:08
== END ==
PROVIDERS: PCP Family Medicine; Referring Provider Internal Medicine Critical Care Medicine; Visit Provider Internal Medicine Critical Care Medicine
DX: N28.89 Other specified disorders of kidney and ureter (principal); N28.1 Cyst of kidney, acquired; R91.8 Other nonspecific abnormal finding of lung field; J45.40 Moderate persistent asthma, uncomplicated
CPT/HCPCS: 71250; 76770

== ENCOUNTER 2023-08-29 15:48 | Emergency (ER) | payer OTHER, MEDICARE, SELFPAY ==
[2023-08-29] VITALS (7 sets, daily range): BP systolic 130–191; BP diastolic 72–91; PULSE 64–77; RESP 16–18; TEMP 36.9; O2SAT 92–97; BMI 35.3
--- NOTE | 2023-08-29 16:27 | DI.RAD.S_ITS ---
PROCEDURE: XR LUMBAR SPINE 2-3V INDICATIONS: back pain TECHNIQUE: 3 views of the lumbar spine were acquired. COMPARISON: [facility], CT, CT ABDOMEN PELVIS W CON, 09/03/2022, 14:56. FINDINGS: Bones: 5 [id number] vertebrae are present. Grade 1 anterolisthesis of L5-S1. There is multilevel facet arthropathy, worse at L4-5 and L5-S1. Mild multilevel disc height loss with degenerative endplate changes and spurring is present. This is most pronounced at L5-S1. Diffusely decreased osseous mineralization. Large Schmorl's node versus mild compression deformity of the superior endplate of L2. No new vertebral body compression fractures. No suspicious bony lesions. Soft tissues: Overlying bowel gas pattern is normal. No suspicious soft tissue calcifications. IMPRESSION: Multilevel degenerative changes of the lumbar spine. Large Schmorl's node versus mild compression deformity of the superior endplate of L2, stable compared to prior CT scan. No new vertebral body compression deformities. Dictated by: Rogerio Diehl M.D. on 08/29/2023 at 16:54 Approved by: Rogerio Diehl M.D. on 08/29/2023 at 16:55
--- NOTE | 2023-08-29 20:30 | ED_ITS ---
HPI - Back Pain/Injury General Chief Complaint: Back Pain/Injury Stated Complaint: lumbar pain Time Seen by Provider: 08/29/23 19:28 Source: patient History of Present Illness HPI Narrative: 67-year-old female presents for evaluation right-sided lower back pain that radiates down her leg and into her groin. Patient states she woke up at approximately 2:00 a.m. several days ago with this pain. She thinks it was caused by vigorous aquatic aerobic exercises done the day before hand. She went to her chiropractor which helped somewhat. The next day she continued to be in pain and the chiropractor was concerned about potentially causing more damage and he referred her for x-rays to make sure there was no fracture. Patient denies any trauma to her back or extremities. She denies bowel or bladder incontinence, denies saddle anesthesia, reports difficulty ambulating due to pain, denies lower extremity weakness. Related Data Home Medications Medication Instructions Recorded Confirmed acetaminophen 500 mg capsule 500 mg PO Q6H PRN 12/08/22 07/18/23 alprazolam 0.5 mg tablet 0.5 mg PO DAILY 12/08/22 07/18/23 ascorbic acid (vitamin C) 500 mg mg PO 12/08/22 07/18/23 capsule calcium citrate 250 mg PO DAILY 12/08/22 07/18/23 cholecalciferol (vitamin D3) 25 25 mcg PO DAILY 12/08/22 07/18/23 mcg (1,000 unit) capsule coenzyme Q10 100 mg capsule 100 mg PO DAILY 12/08/22 07/18/23 (CoQ-10) cyanocobalamin (vitamin B-12) 1,000 mcg PO DAILY 12/08/22 07/18/23 1,000 mcg capsule fluticasone propionate 50 1 spray intranasal DAILY 12/08/22 07/18/23 mcg/actuation nasal spray,suspension (Flonase Allergy Relief) gabapentin 600 mg tablet 600 mg PO TID 12/08/22 07/18/23 magnesium oxide 500 mg PO DAILY 12/08/22 07/18/23 ondansetron 8 mg disintegrating 8 mg PO Q12H 12/08/22 07/18/23 tablet potassium chloride 20 mEq 20 meq PO BID 12/08/22 07/18/23 tablet,extended release(part/cryst) pravastatin 10 mg tablet 10 mg PO DAILY 12/08/22 07/18/23 sumatriptan succinate 25 mg tablet See Rx Instructions PO .COMPLEX 12/08/22 07/18/23 trazodone 100 mg tablet 100 mg PO BEDTIME PRN 12/08/22 07/18/23 vitamin B complex (B 1 tab PO DAILY 12/08/22 07/18/23 Complex-Vitamin B12 tablet) zinc sulfate 50 mg zinc (220 mg) 50 mg PO BID 12/08/22 07/18/23 tablet albuterol sulfate 90 mcg/actuation 1 inh inhalation ONCE 07/18/23 07/18/23 aerosol inhaler telmisartan 80 mg tablet 80 mg PO BEDTIME 07/18/23 07/18/23 Previous Rx's Medication Instructions Recorded cyclobenzaprine 5 mg tablet 5 mg PO TID PRN muscle spasm #20 09/03/22 tabs fluticasone 250 mcg-salmeterol 50 1 inh inhalation BID #1 ea 12/08/22 mcg/dose blistr powdr for inhalation ipratropium 0.5 mg-albuterol 3 mg 3 ml inhalation Q4-6H PRN 04/10/23 (2.5 mg base)/3 mL nebulization shortness of breath 30 days #90 mL soln albuterol sulfate 90 mcg/actuation 2 puff inhalation Q6H PRN 07/18/23 aerosol inhaler shortness of breath or wheezing #6.7 grams diazepam 2 mg tablet (Valium) 2 mg PO TID PRN muscle spasm #10 08/29/23 tabs methylprednisolone 4 mg tablets in See Rx Instructions PO .COMPLEX 08/29/23 a dose pack (Medrol (Justice)) #21 ea Allergies Allergy/AdvReac Type Severity Reaction Status Date / Time atorvastatin [From Lipitor] Allergy Verified 07/18/23 10:27 Beta-Blockers Allergy Verified 07/18/23 10:27 (Beta-Adrenergic Bloc cat dander Allergy Verified 07/18/23 10:27 cucumber Allergy Verified 07/18/23 10:27 duloxetine Allergy Verified 07/18/23 10:27 oxycodone [From Percocet] Allergy Verified 07/18/23 10:27 paroxetine [From Paxil] Allergy Verified 07/18/23 10:27 prochlorperazine Allergy Verified 07/18/23 10:27 [From Compazine] promethazine Allergy Verified 07/18/23 10:27 Sulfa (Sulfonamide Allergy Verified 07/18/23 10:27 Antibiotics) Review of Systems Review of Systems Narrative: See HPI Patient History Social History Smoking Status: Former smoker Smoking Status: Former smoker alcohol intake frequency: a few times a month Alcohol type: wine Substance Use Type: does not use Exam Initial Vital Signs Initial Vital Signs: Vital Signs Temperature 98.4 F 08/29/23 15:59 Pulse Rate 68 08/29/23 15:59 Respiratory Rate 18 08/29/23 15:59 Blood Pressure 138/91 H 08/29/23 15:59 Pulse Oximetry 97 08/29/23 15:59 Oxygen Delivery Method Room Air 08/29/23 15:59 Const: Awake, alert, no acute distress, nontoxic appearing Cardiac: regular rate, regular rhythm RESP: unlabored, clear bilaterally, no wheezing MSK back: No midline tenderness, right-sided lower lumbar paraspinal tenderness to palpation, pain over top of right gluteus, positive straight leg raise Skin: Warm, Dry, intact, no rashes Neuro: AO x3, CN II-XII grossly intact, moves all extremities Course Orders Ordered: Discontinued Medications Dexamethasone (Dexamethasone 10 Mg/Ml Vial) 10 mg IV NOW ONE Stop: 08/29/23 20:31 Last Admin: 08/29/23 20:52 Dose: 10 mg Documented By: SKYE Diazepam (Diazepam 10 Mg/2 Ml Syringe) 2 mg IV NOW ONE Stop: 08/29/23 20:31 Last Admin: 08/29/23 20:54 Dose: 2 mg Documented By: SKYE Acetaminophen (Ofirmev) 1,000 mg in 100 mls @ 400 mls/hr IV NOW ONE Stop: 08/29/23 20:44 Last Infusion: 08/29/23 21:15 Dose: Infused Documented By: Admin: 08/29/23 20:55 Dose: 400 mls/hr Documented By: SKYE Ketorolac Tromethamine (Ketorolac 30 Mg/Ml Vial) 15 mg IV NOW ONE Stop: 08/29/23 20:31 Last Admin: 08/29/23 20:51 Dose: 15 mg Documented By: DKB Lidocaine (Lidocaine 5% Patch) 1 each TOP NOW ONE Stop: 08/29/23 20:31 Last Admin: 08/29/23 21:04 Dose: 1 each Documented By: SKYE Vital Signs Vital signs: Vital Signs - 8 hr 08/29/23 21:00 08/29/23 21:30 08/29/23 22:00 Pulse Rate 75 77 64 Respiratory Rate 17 16 18 Blood Pressure 130/88 146/72 H 160/72 H Pulse Oximetry 94 96 97 MDM - Back Pain/Injury Differential Diagnosis Differential diagnosis: Likely lumbar radiculopathy, sciatica and strain of lumbar region MDM Narrative Medical decision making narrative: Patient is sent by chiropractor to evaluate for possible lumbar fractures. I am uncertain why fracture would be suspected as there was no trauma, patient has no history of cancer or other reason to suspect an acute traumatic process. X-ray imaging was ordered in triage, negative for acute findings. Patient given medications for pain which improved her symptoms. Patient counseled that she ma y continue to go to her chiropractor for her lower back if she finds benefit from it or orthopedic spine doctor. Referral provided. Medications sent to pharmacy of choice. Discharge Plan Departure Patient Disposition: Home Clinical Impression: Back pain with sciatica Instructions: DI for Sciatica Activity Restrictions/Additional Instructions: Continue to take Tylenol and ibuprofen as needed for pain. A steroid pack has been sent to the pharmacy which will help with inflammation. A short course of Valium has also been sent to your pharmacy, which will help with muscle spasms. Do not mix the Valium with your alprazolam. I would also recommend following up with your primary care physician to talk about possible physical therapy. Prescriptions: New methylprednisolone [Medrol (Justice)] 4 mg tablets,dose pack See Rx Instructions .ROUTE .COMPLEX Qty: 21 0RF Rx Instructions: for 6 days diazepam [Valium] 2 mg tablet 2 mg PO TID PRN (Reason: muscle spasm) Qty: 10 0RF No Action ipratropium-albuterol 0.5 mg-3 mg(2.5 mg base)/3 mL solution for nebulization 3 ml inhalation Q4-6H PRN (Reason: shortness of breath) 30 Days Qty: 90 3RF Rx Instructions: Inhale 3ml every 4-6 hours as needed for SOB and wheezing cyclobenzaprine 5 mg tablet 5 mg PO TID PRN (Reason: muscle spasm) Qty: 20 0RF Rx Instructions: Do not drive after taking, do not take with sleep inducing meds acetaminophen 500 mg capsule 500 mg PO Q6H PRN alprazolam 0.5 mg tablet 0.5 mg PO DAILY ascorbic acid (vitamin C) 500 mg capsule PO vitamin B complex [B Complex-Vitamin B12] Tablet 1 tab PO DAILY calcium citrate 250 mg calcium tablet 250 mg PO DAILY cholecalciferol (vitamin D3) 25 mcg (1,000 unit) capsule 25 mcg PO DAILY coenzyme Q10 [CoQ-10] 100 mg capsule 100 mg PO DAILY cyanocobalamin (vitamin B-12) 1,000 mcg capsule 1,000 mcg PO DAILY fluticasone propionate [Flonase Allergy Relief] 50 mcg/actuation spray,suspension 1 spray intranasal DAILY Rx Instructions: administer into each nostril gabapentin 600 mg tablet 600 mg PO TID magnesium oxide 500 mg tablet 500 mg PO DAILY ondansetron 8 mg tablet,disintegrating 8 mg PO Q12H potassium chloride 20 mEq tablet,ER particles/crystals 20 meq PO BID pravastatin 10 mg tablet 10 mg PO DAILY sumatriptan succinate 25 mg tablet See Rx Instructions PO .COMPLEX Rx Instructions: take 1 tab at onset of headache; if no relief may repeat 1 tab after at least 2 hrs; max = 4 tabs/24 hr PO trazodone 100 mg tablet 100 mg PO BEDTIME PRN zinc sulfate 50 mg zinc (220 mg) tablet 50 mg PO BID fluticasone propion-salmeterol 250-50 mcg/dose blister with device 1 inh inhalation BID Qty: 1 5RF telmisartan 80 mg tablet 80 mg PO BEDTIME Patient Comments: TAKE 1 TABLET BY MOUTH EVERY DAY FOR BLOOD PRESSURE albuterol sulfate 90 mcg/actuation HFA aerosol inhaler 1 inh inhalation ONCE albuterol sulfate 90 mcg/actuation HFA aerosol inhaler 2 puff inhalation Q6H PRN (Reason: shortness of breath or wheezing) Qty: 6.7 5RF Referrals: Telly Dodge DO [Primary Care Provider] - Stand Alone Forms: Patient Portal/API
[2023-08-29] MEDS: KETOROLAC 30 MG/ML VIAL 15 MG IV (20:51)
[2023-08-29] MEDS: DEXAMETHASONE 10 MG/ML VIAL IV (20:52)
[2023-08-29] MEDS: diazePAM 10 MG/2 ML SYRINGE 2 MG IV (20:54)
[2023-08-29] MEDS: ACETAMINOPHEN IV 1,000 MG/100 ML VIAL 400 MG IV (20:55)
[2023-08-29] MEDS: LIDOCAINE 5% PATCH 1 EACH TOP (21:04)
== END 2023-08-29 22:15 | disposition home or self-care (01) ==
PROVIDERS: Emergency Provider Emergency Medicine; PCP Family Medicine; Referring Provider Chiropractor
DX: M54.41 Lumbago with sciatica, right side (principal); Z79.899 Other long term (current) drug therapy
CPT/HCPCS: 72100; 96365; 96375; 99283; 99284; J0136; J1100; J1885; J3360

== ENCOUNTER 2023-09-04 15:23 | Emergency (ER) | payer OTHER, MEDICARE, SELFPAY ==
[2023-09-04 15:26] VITALS: BP 138/64; PULSE 76; RESP 16; TEMP 36.8; O2SAT 96; BMI 35.3
--- NOTE | 2023-09-04 15:40 | ED.BACK ---
HPI - Back Pain/Injury <Angela Lee PA-C - Last Filed: 09/04/23 17:35> General Chief Complaint: Back Pain/Injury Stated Complaint: Sciatica Px (recheck) Time Seen by Provider: 09/04/23 15:39 Source: patient and EMS History of Present Illness HPI Narrative: 67-year-old female brought in by EMS for persistent right lower back pain. She was seen here on August 29, 2023 had plain film radiographs performed and treated with prescription Valium at home, 2 mg she took her last tablet this morning, a Medrol Dosepak that she also completed today, she has been also using [id number] naproxen ibuprofen and Tylenol with little relief. She was given Toradol intravenously by the medics and she states ?that is the only thing that helps?. She has been using heating pad and is still on it during the interview. She points to the right lower back it radiates around to the front to her groin to the front of her thigh to the level of her knee. She describes it is spasming and becoming very uncomfortable. She is denying any issues with bowel or bladder, any numbness or tingling or loss of sensation or weakness. No saddle anesthesia. No history of cancer. No fever. She has had no trauma to the back no surgical intervention. She has a telemedicine appointment scheduled with Dr. Dodge out of [place], [place] where she used to reside. She also has a physical therapy evaluation and treatment in her home scheduled for in addition to another appointment with her chiropractor. She states she has basically been lying in bed at home for the last 8 days and states it is so uncomfortable that ?I wish I were becoming tearful as she was speaking to me. She is here with her daughter as well. She has no plan in terms of suicidal ideation she just wants ?the pain to go away?. All other systems are reviewed and are negative. Related Data Home Medications Medication Instructions Recorded Confirmed acetaminophen 500 mg capsule 500 mg PO Q6H PRN 12/08/22 07/18/23 alprazolam 0.5 mg tablet 0.5 mg PO DAILY 12/08/22 07/18/23 ascorbic acid (vitamin C) 500 mg mg PO 12/08/22 07/18/23 capsule calcium citrate 250 mg PO DAILY 12/08/22 07/18/23 cholecalciferol (vitamin D3) 25 25 mcg PO DAILY 12/08/22 07/18/23 mcg (1,000 unit) capsule coenzyme Q10 100 mg capsule 100 mg PO DAILY 12/08/22 07/18/23 (CoQ-10) cyanocobalamin (vitamin B-12) 1,000 mcg PO DAILY 12/08/22 07/18/23 1,000 mcg capsule fluticasone propionate 50 1 spray intranasal DAILY 12/08/22 07/18/23 mcg/actuation nasal spray,suspension (Flonase Allergy Relief) gabapentin 600 mg tablet 600 mg PO TID 12/08/22 07/18/23 magnesium oxide 500 mg PO DAILY 12/08/22 07/18/23 ondansetron 8 mg disintegrating 8 mg PO Q12H 12/08/22 07/18/23 tablet potassium chloride 20 mEq 20 meq PO BID 12/08/22 07/18/23 tablet,extended release(part/cryst) pravastatin 10 mg tablet 10 mg PO DAILY 12/08/22 07/18/23 sumatriptan succinate 25 mg tablet See Rx Instructions PO .COMPLEX 12/08/22 07/18/23 trazodone 100 mg tablet 100 mg PO BEDTIME PRN 12/08/22 07/18/23 vitamin B complex (B 1 tab PO DAILY 12/08/22 07/18/23 Complex-Vitamin B12 tablet) zinc sulfate 50 mg zinc (220 mg) 50 mg PO BID 12/08/22 07/18/23 tablet albuterol sulfate 90 mcg/actuation 1 inh inhalation ONCE 07/18/23 07/18/23 aerosol inhaler telmisartan 80 mg tablet 80 mg PO BEDTIME 07/18/23 07/18/23 Previous Rx's Medication Instructions Recorded cyclobenzaprine 5 mg tablet 5 mg PO TID PRN muscle spasm #20 09/03/22 tabs fluticasone 250 mcg-salmeterol 50 1 inh inhalation BID #1 ea 12/08/22 mcg/dose blistr powdr for inhalation ipratropium 0.5 mg-albuterol 3 mg 3 ml inhalation Q4-6H PRN 04/10/23 (2.5 mg base)/3 mL nebulization shortness of breath 30 days #90 mL soln albuterol sulfate 90 mcg/actuation 2 puff inhalation Q6H PRN 07/18/23 aerosol inhaler shortness of breath or wheezing #6.7 grams diazepam 2 mg tablet (Valium) 2 mg PO TID PRN muscle spasm #10 08/29/23 tabs methylprednisolone 4 mg tablets in See Rx Instructions PO .COMPLEX 08/29/23 a dose pack (Medrol (Justice)) #21 ea cyclobenzaprine 10 mg tablet 10 mg PO TID PRN muscle spasm #15 09/04/23 tabs ondansetron 4 mg disintegrating 4 mg PO Q8H #20 tabs 09/04/23 tablet Allergies Allergy/AdvReac Type Severity Reaction Status Date / Time atorvastatin [From Lipitor] Allergy Verified 07/18/23 10:27 Beta-Blockers Allergy Verified 07/18/23 10:27 (Beta-Adrenergic Bloc cat dander Allergy Verified 07/18/23 10:27 cucumber Allergy Verified 07/18/23 10:27 duloxetine Allergy Verified 07/18/23 10:27 oxycodone [From Percocet] Allergy Verified 07/18/23 10:27 paroxetine [From Paxil] Allergy Verified 07/18/23 10:27 prochlorperazine Allergy Verified 07/18/23 10:27 [From Compazine] promethazine Allergy Verified 07/18/23 10:27 Sulfa (Sulfonamide Allergy Verified 07/18/23 10:27 Antibiotics) Review of Systems <Angela Lee PA-C - Last Filed: 09/04/23 17:35> Review of Systems Narrative: All other systems are reviewed and are negative. Patient History <Angela Lee PA-C - Last Filed: 09/04/23 17:35> Social History Smoking Status: Former smoker Smoking Status: Former smoker alcohol intake frequency: a few times a month Alcohol type: wine Substance Use Type: does not use Exam <Angela Lee PA-C - Last Filed: 09/04/23 17:35> Initial Vital Signs Initial Vital Signs: Vital Signs Temperature 98.2 F 09/04/23 15:26 Pulse Rate 76 09/04/23 15:26 Respiratory Rate 16 09/04/23 15:26 Blood Pressure 138/64 09/04/23 15:26 Pulse Oximetry 96 09/04/23 15:26 Oxygen Delivery Method Room Air 09/04/23 15:26 Vital signs reviewed and are normal. Const Other: Seated in the wheelchair, uncomfortable appearing but nontoxic appearing. Tearful at times but able to answer my questions in full and complete sentences. Neck Other: No focal bony midline tenderness full active ROM of the neck. Chest Other: Anterior and posterior chest are atraumatic, no rash. She has a little bit of pink discoloration in the mid thoracic region from her heating pad but there are no breaks in the skin. No vesicles. Resp Other: Clear to auscultation throughout, normal respiratory effort. Cardio Other: Regular rate and rhythm. No tachycardia. Back/Spine/Pelvis Other: Exam is limited due to her pain and current positioning in the wheelchair, straight leg raise is negative bilaterally.. She is able to flex and extend her lower extremities against resistance. There is no focal bony midline tenderness of the lumbar sacral spine, coccyx is nontender. There is some tenderness in the paraspinous tissues in the lumbar sacral region on the right side there is no mass or swelling. No appreciable tenderness in the piriformis or sciatic notch. Neuro Other: Deep tendon reflexes are 3+ bilaterally in the knee jerk, 2+ in the ankle jerk, and plantar are downward. Her distal sensory is grossly intact. PT pulses and DP pulses are palpable bilaterally and equal. There is no pedal edema. Rectal exam reveals normal rectal tone nontender examination. No bony tenderness. Extrem Other: Unable to perform hip ROM as she is seated in the wheelchair. Psych Other: She is alert and oriented x4, discussed her earlier statement of not wanting to live she denies wanting to harm herself and has no plan to do so, she just states being in pain for the last 8 days she just wants the pain to stop <Ronak Ordoñez MD - Last Filed: 09/17/23 15:31> Initial Vital Signs Initial Vital Signs: Vital Signs Temperature 98.2 F 09/04/23 15:26 Pulse Rate 76 09/04/23 15:26 Respiratory Rate 16 09/04/23 15:26 Blood Pressure 138/64 09/04/23 15:26 Pulse Oximetry 96 09/04/23 15:26 Oxygen Delivery Method Room Air 09/04/23 15:26 Course <Angela Lee PA-C - Last Filed: 09/04/23 17:35> Course Course Narrative: She was re-evaluated after her steroid administration and pain medication, Dilaudid she has had significant and immediate relief, she is smiling and thankful. Additional Information: At 5:30 p.m. she was able to stand with minimal assistance and ambulate about 20 yd and then sit back down in her wheelchair. She was fully upright, no tremor, strength was intact and equal bilaterally lower extremities. Orders Ordered: Discontinued Medications Hydromorphone HCl (Hydromorphone 2 Mg Inj) 2 mg IM NOW ONE Stop: 09/04/23 16:31 Last Admin: 09/04/23 17:03 Dose: 2 mg Documented By: CADENCE Dexamethasone 20 mg/ Sodium (Chloride) 52 mls @ 208 mls/hr IV NOW ONE Stop: 09/04/23 16:21 Last Infusion: 09/04/23 17:27 Dose: Infused Documented By: Admin: 09/04/23 17:04 Dose: 208 mls/hr Documented By: CADENCE Ondansetron HCl (Ondansetron 4 Mg/2 Ml Inj) 4 mg IV NOW ONE Stop: 09/04/23 16:21 Last Admin: 09/04/23 16:34 Dose: 4 mg Documented By: CADENCE Consultations Consultation #1: I spoke with the ER attending Dr. Ordoñez to discuss a treatment plan. X-rays were performed here on August 29, 2023 and had no acute findings or significant interval change compared to previous imaging. He recommended dexamethasone 20 mg intravenously for long-acting, Dilaudid 2 mg intramuscularly for long-acting and consider a muscle relaxant such as methocarbamol for home. She has her telemedicine appointment tomorrow morning at 10:[address] Dodge, her primary care, she also has her 1st physical therapy evaluation and treatment in her home this . She also has a chiropractic appointment on . Consultation #2: Our in-house nuclear medicine medical director Shanelle Tillman, came to see the patient at 1650hrs. They had a positive encounter and she has been cleared. Vital Signs Vital signs: Vital Signs - 8 hr 09/04/23 15:26 Temperature 98.2 F Pulse Rate 76 Respiratory Rate 16 Blood Pressure 138/64 Pulse Oximetry 96 Oxygen Delivery Method Room Air <Ronak Ordoñez MD - Last Filed: 09/17/23 15:31> Orders Ordered: Discontinued Medications Hydromorphone HCl (Hydromorphone 2 Mg Inj) 2 mg IM NOW ONE Stop: 09/04/23 16:31 Last Admin: 09/04/23 17:03 Dose: 2 mg Documented By: CADENCE Dexamethasone 20 mg/ Sodium (Chloride) 52 mls @ 208 mls/hr IV NOW ONE Stop: 09/04/23 16:21 Last Infusion: 09/04/23 17:27 Dose: Infused Documented By: Admin: 09/04/23 17:04 Dose: 208 mls/hr Documented By: NL Ondansetron HCl (Ondansetron 4 Mg/2 Ml Inj) 4 mg IV NOW ONE Stop: 09/04/23 16:21 Last Admin: 09/04/23 16:34 Dose: 4 mg Documented By: CADENCE Vital Signs Vital signs: Vital Signs - 8 hr 09/04/23 15:26 Temperature 98.2 F Pulse Rate 76 Respiratory Rate 16 Blood Pressure 138/64 Pulse Oximetry 96 Oxygen Delivery Method Room Air MDM - Back Pain/Injury <Angela Lee PA-C - Last Filed: 09/04/23 17:35> Medical Records Attestation: I reviewed the patient's medical records. MDM Narrative Medical decision making narrative: There are no acute clinical findings or focal neurologic deficits on examination. Her straight leg raise is negative, her rectal exam is normal. She has no focal weakness or numbness. She is treated with dexamethasone 20 mg intravenously, Dilaudid 2 mg intramuscularly, and consultation with our nuclear medicine medical director was ordered. She had a good exchange during this encounter. I have opted to prescribe her a muscle relaxant (Flexeril) as she took her last Valium today and has a history of using alprazolam. I would like to have an exit strategy and prevent long-term use of benzodiazepine. She will be seeing her doctor tomorrow morning via telemedicine (Dr. Dodge) and can address any medication changes at that point. Discuss at length the proper use of anti-inflammatories and to choose 1 and maintain that dose do not mix ibuprofen with ketorolac and naproxen. She had ketorolac intravenously by EMS today. Her next dose of any anti-inflammatory should be at least 12 hours from now. Discussed the effects on kidney and liver function. Regarding Tylenol she certainly can take this but should not exceed 4000 mg per day. She managed to have significant relief following the dexamethasone and Dilaudid administration. She was road tested and able to walk 20 yd with minimal assistance. Full weightbear no deficits. At this point she has no barriers to access to healthcare. Red flag warning signs reviewed in detail with the patient and her daughter. Discharge Plan Departure Patient Disposition: Home Clinical Impression: Chronic low back pain Qualifiers: Back pain laterality: right Sciatica presence: with sciatica Sciatica laterality: sciatica of right side Qualified Code(s): M54.41 - Lumbago with sciatica, right side Instructions: DI for Low Back Pain Activity Restrictions/Additional Instructions: I have prescribed you a muscle relaxant (Flexeril) in addition to an opioid pain medication (oxycodone). Please use caution with this as it has caused nausea in the past, it can cause constipation it can also cause lightheadedness, sedation, dizziness, delirium, and can be habit-forming. I have placed a new prescription for ondansetron for your nausea prevention that you have had in the past. I would like you to keep your appointment with Dr. Echols at 10:00 a.m. tomorrow morning. I am glad that you have a physical therapy evaluation and treatment appointment on , I think he will benefit greatly from this. Your doctor can arrange for any outpatient imaging or any other referrals such as orthopedic-spine which was recommended during your last emergency department visit, pain management, and/or mental health. Please return to the emergency department if you experience worsening pain, you have any new symptoms such as weakness, loss of sensation or numbness, any foot drop any issues with bowel or bladder or any other worrisome concerns. *If you feel that you are entering into mental health crisis you have multiple options 1. Return to the ER immediately 2. Call the Crisis Line at [phone] 3. Send an anonymous text by sending the word Helmarisa to [phone] 4. Navigate your web browser to [employer] to engage in anonymous chat with a mental health worker. Prescriptions: New cyclobenzaprine 10 mg tablet 10 mg PO TID PRN (Reason: muscle spasm) Qty: 15 0RF ondansetron 4 mg tablet,disintegrating 4 mg PO Q8H Qty: 20 0RF No Action ipratropium-albuterol 0.5 mg-3 mg(2.5 mg base)/3 mL solution for nebulization 3 ml inhalation Q4-6H PRN (Reason: shortness of breath) 30 Days Qty: 90 3RF Rx Instructions: Inhale 3ml every 4-6 hours as needed for SOB and wheezing cyclobenzaprine 5 mg tablet 5 mg PO TID PRN (Reason: muscle spasm) Qty: 20 0RF Rx Instructions: Do not drive after taking, do not take with sleep inducing meds methylprednisolone [Medrol (Justice)] 4 mg tablets,dose pack See Rx Instructions .ROUTE .COMPLEX Qty: 21 0RF Rx Instructions: for 6 days diazepam [Valium] 2 mg tablet 2 mg PO TID PRN (Reason: muscle spasm) Qty: 10 0RF acetaminophen 500 mg capsule 500 mg PO Q6H PRN alprazolam 0.5 mg tablet 0.5 mg PO DAILY ascorbic acid (vitamin C) 500 mg capsule PO vitamin B complex [B Complex-Vitamin B12] Tablet 1 tab PO DAILY calcium citrate 250 mg calcium tablet 250 mg PO DAILY cholecalciferol (vitamin D3) 25 mcg (1,000 unit) capsule 25 mcg PO DAILY coenzyme Q10 [CoQ-10] 100 mg capsule 100 mg PO DAILY cyanocobalamin (vitamin B-12) 1,000 mcg capsule 1,000 mcg PO DAILY fluticasone propionate [Flonase Allergy Relief] 50 mcg/actuation spray,suspension 1 spray intranasal DAILY Rx Instructions: administer into each nostril gabapentin 600 mg tablet 600 mg PO TID magnesium oxide 500 mg tablet 500 mg PO DAILY ondansetron 8 mg tablet,disintegrating 8 mg PO Q12H potassium chloride 20 mEq tablet,ER particles/crystals 20 meq PO BID pravastatin 10 mg tablet 10 mg PO DAILY sumatriptan succinate 25 mg tablet See Rx Instructions PO .COMPLEX Rx Instructions: take 1 tab at onset of headache; if no relief may repeat 1 tab after at least 2 hrs; max = 4 tabs/24 hr PO trazodone 100 mg tablet 100 mg PO BEDTIME PRN zinc sulfate 50 mg zinc (220 mg) tablet 50 mg PO BID fluticasone propion-salmeterol 250-50 mcg/dose blister with device 1 inh inhalation BID Qty: 1 5RF telmisartan 80 mg tablet 80 mg PO BEDTIME Patient Comments: TAKE 1 TABLET BY MOUTH EVERY DAY FOR BLOOD PRESSURE albuterol sulfate 90 mcg/actuation HFA aerosol inhaler 1 inh inhalation ONCE albuterol sulfate 90 mcg/actuation HFA aerosol inhaler 2 puff inhalation Q6H PRN (Reason: shortness of breath or wheezing) Qty: 6.7 5RF Referrals: Telly Dodge DO [Primary Care Provider] - Stand Alone Forms: Patient Portal/API ED Sign-out <Ronak Ordoñez MD - Last Filed: 09/17/23 15:31> Cosign ED Attending Cosignature Attestation: I was immediately available in the department for consultation. ?This documentation has been reviewed and I agree with assessment and plan. Supervised by Ronak Ordoñez MD
[2023-09-04] MEDS: ONDANSETRON 4 MG/2 ML INJ IV (16:34)
[2023-09-04] MEDS: HYDROMORPHONE 2 MG INJ IM (17:03)
[2023-09-04] MEDS: dexAMETHasone 20 MG in SODIUM CHLORIDE 0.9% 50 ML 208 MG IV (17:04)
--- NOTE | 2023-09-04 17:55 | CM.SWNOTE ---
ED WORM SORTER Note: Pt is a 67yo female, resident of [place], presented to the ED via EMS due to persistent back pain with sciatica. Pt presented to the ED on 08/29/23 for the same symptoms. Pt's PCP is Dr. Zander Dodge and insurance is [employer] [facility] and Medicare. WORM SORTER was consulted due to pt endorsing some SI with no plan. Per PATitusC and RN, pt has a lot of support from family and primary care provider, chiropractor, and home health PT. RN noted that pt plan is to obtain IV pain medications and that MRI is not necessary at this time. WORM SORTER entered room, introduced self and role. Present in the room is pt's daughter, Merlyn. Pt is found sitting in wheelchair, endorsing severe pain and being not good today. Pt confirms that she lives in [place] with her , who works everyday, and a child whom the pt (12yo) is trying to obtain guardianship over. Pt is retired. Pt reports she has had pain for the past seven days with no relief. 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 Pt endorses her PCP of 20+ years, Dr. Zander Dodge, has been supportive with this episode via telehealth; ordered home health and another follow up tomorrow, 09/04. Pt reports she has Physical Therapy through [facility] scheduled for , 09/05 and a follow up chiropractor appointment for the same day at 2:00pm. Pt explains her pain has been 10/10 for the past several days and she has taken all of the medications prescribed to her from the ED and her PCP with no relief. WORM SORTER inquired about SI with pt and pt denied any plans to kill herself but explained, When I am in bed and can't move because I'm in so much pain and my is at work all day, I can't help but think that I rather than deal with this pain. Pt denies any thoughts about killing herself now. Pt's daughter explained that pt has been under a lot of stress due to attending court hearings to obtain guardianship of a child they are fostering. WORM SORTER utilized reflective listening and provided some psychoeducation regarding stress. WORM SORTER discussed care plans with pt of obtaining IV pain medications; pt expressed appreciation. WORM SORTER encouraged pt to advocate to PCP to add RN services to HH orders for possible IM pain medications to assist with pain management. Pt was able to contract for safety and endorses a safe discharge with family and community supports. WORM SORTER provided pt's daughter with a list of crisis contacts. Before exiting the room, pt endorsed feeling relief after IM/IV pain medications were administered. Plan: Discharge with family when medically cleared and pain managed; follow up with home health PT, PCP, and chiropractor. SHANNON Spaulding
[2023-09-04 18:04] VITALS: BP 156/80; PULSE 76; O2SAT 95
== END 2023-09-04 17:45 | disposition home or self-care (01) ==
PROVIDERS: Emergency Provider Physician Assistant Medical; PCP Family Medicine
DX: M54.41 Lumbago with sciatica, right side (principal)
CPT/HCPCS: 96365; 96372; 96375; 99283; 99284; J1100; J1170; J2405

== ENCOUNTER → 2024-03-13 12:56 | Outpatient (CLI) | payer OTHER, MEDICARE, SELFPAY ==
--- NOTE | 2024-03-13 12:58 | DI.MG.S_ITS ---
BILATERAL DIGITAL SCREENING MAMMOGRAM 3D/2D WITH CAD: 03/13/2024 CLINICAL: Routine screening. Family history of breast cancer. Comparison is made to exam dated: 01/31/2022 mammogram - [facility]. There are scattered areas of fibroglandular density (category b / 25%-50% glandular tissue). Current study was also evaluated with a Computer Aided Detection (CAD) system. No significant masses, calcifications, or other findings are seen in either breast. There has been no significant interval change. IMPRESSION: NEGATIVE There is no mammographic evidence of malignancy. A 1 year screening mammogram is recommended. Based on the Tyrer Cuzick model (a risk assessment model) the patient's lifetime risk is 7.9% and her 10 year risk is 4.7%. According to the ACR, ACS, and NCCN guidelines, an annual breast MRI exam along with mammogram is recommended if the patient's lifetime risk is 20% or greater. This exam was interpreted at Station ID: [id number]. NOTE: For mammograms, a report in lay terms will be sent to the patient. Approximately 15% of breast malignancies will not be visualized mammographically. In the management of a palpable breast mass, a negative mammogram must not discourage biopsy of a clinically suspicious lesion. Electronically Signed By: Julius peace/felisha:03/13/2024 16:40:55 letter sent: Normal Exam ACR BI-RADS Category 1: Negative
== END ==
LOC: MAMMO 12:58
PROVIDERS: PCP Family Medicine; Referring Provider Family Medicine; Visit Provider Family Medicine
DX: Z12.31 Encounter for screening mammogram for malignant neoplasm of breast (principal); Z80.3 Family history of malignant neoplasm of breast
CPT/HCPCS: 77063; 77067

== ENCOUNTER 2024-03-19 09:27 | Day surgery (SDC) | payer OTHER, MEDICARE, SELFPAY ==
--- NOTE | 2024-03-19 | PATH_ITS ---
[facility] Accession Number: [id number] No. of containers..01 Tissue . 01 Material submitted: . gastrointestinal site - GASTRIC BIOPSY . 01 Clinical history: . R/O HP . 01 Diagnosis: Stomach, biopsy: Benign oxyntic gastric mucosa with unremarkable histology. No H. Pylori like organisms identified (on the H/E- stained sections). Negative for gastritis, intestinal metaplasia, dysplasia, or malignancy. TXN 03/20/2024 1459 Local . 01 Electronically signed: . Felipa Torres MD, Pathologist NPI- [id number] . 01 Gross description: . GASTRIC BIOPSY: Received in formalin is 1 fragment(s) of lugo, soft tissue measuring 0.3 x 0.3 x 0.3 cm submitted entirely in 1 cassette(s) /LANE 03/20/2024 0136 Local . 01 Pathologist provided ICD-10: R11.0 . 01 CPT . 840933 Specimen Comment: A courtesy copy of this report has been sent to [phone] Performed at: [address] [address], [place], [place] [id number] MD Nathan Welch MD Phone: [phone]
[2024-03-19 09:49] VITALS: BP 122/76; PULSE 58; RESP 16; TEMP 36.5; O2SAT 93
--- NOTE | 2024-03-19 09:52 | P.OP.EGD_ITS ---
Operative Date/Time/Diagnoses Date of procedure: 03/19/24 Pre-op diagnosis: See indication findings Procedure & Clinicians Study performed: EGD Indications: Worsened nausea. Asymptomatic history of esophageal stenosis requiring dilation Surgeon: Cas Womack Procedure Notes Procedure in detail: After informed consent was obtained the patient was placed in left lateral decubitus position. The video upper scope was placed into the oropharynx and with the patient's help swallowed into the esophagus. The esophagus stomach duodenal were carefully examined. On withdrawal retroflexed view the GE junction was performed. The scope was removed. The patient tolerated the procedure well. Blood loss none Complications none Sedation mac Findings 1. Normal esophagus 2. Patchy gastric erythema particularly in the antrum with striped mucosa. Biopsies taken to rule out Helicobacter 3. Normal duodenal bulb and sweep We will await biopsy results and be in touch. Otherwise she should follow-up in GI office with her primary [employer]ra[employer] worker
--- NOTE | 2024-03-19 09:54 | PM.HP.1 ---
History of Present Illness History of Present Illness Date Patient Seen: 03/19/24 Chief complaint: EGD Narrative: Worsening nausea PFSH Social History Smoking Status: Former smoker Meds Home Medications and Allergies Home Medications Medication Instructions Recorded Confirmed Type acetaminophen 500 mg capsule 500 mg PO Q6H PRN Pain (Scale 12/08/22 03/19/24 History Score 4-6) calcium citrate 250 mg PO DAILY 12/08/22 03/19/24 History cholecalciferol (vitamin D3) 25 25 mcg PO DAILY 12/08/22 03/19/24 History mcg (1,000 unit) capsule coenzyme Q10 100 mg capsule 100 mg PO DAILY 12/08/22 03/19/24 History (CoQ-10) cyanocobalamin (vitamin B-12) 1,000 mcg PO DAILY 12/08/22 03/19/24 History 1,000 mcg capsule gabapentin 600 mg tablet 600 mg PO TID 12/08/22 03/19/24 History magnesium oxide 500 mg PO DAILY 12/08/22 03/19/24 History potassium chloride 20 mEq 20 meq PO BID 12/08/22 01/22/24 History tablet,extended release(part/cryst) pravastatin 10 mg tablet 10 mg PO DAILY 12/08/22 03/19/24 History sumatriptan succinate 25 mg tablet See Rx Instructions PO .COMPLEX 12/08/22 03/19/24 History trazodone 100 mg tablet 100 mg PO BEDTIME 12/08/22 03/19/24 History vitamin B complex (B 1 tab PO DAILY 12/08/22 01/22/24 History Complex-Vitamin B12 tablet) zinc sulfate 50 mg zinc (220 mg) 50 mg PO BID 12/08/22 01/22/24 History tablet ipratropium 0.5 mg-albuterol 3 mg 3 ml inhalation Q4-6H PRN 04/10/23 01/22/24 Rx (2.5 mg base)/3 mL nebulization shortness of breath 30 days #90 mL soln albuterol sulfate 90 mcg/actuation 1 inh inhalation ONCE 07/18/23 01/22/24 History aerosol inhaler albuterol sulfate 90 mcg/actuation 2 puff inhalation Q6H PRN 03/20/24 11/20/24 Rx aerosol inhaler shortness of breath or wheezing #6.7 grams telmisartan 80 mg tablet 80 mg PO BEDTIME 07/18/23 03/19/24 History ondansetron 4 mg disintegrating 4 mg PO Q8H #20 tabs 09/04/23 01/22/24 Rx tablet ascorbic acid (vitamin C) 500 mg 1,000 mg PO DAILY 11/16/23 03/19/24 History capsule fluticasone 250 mcg-salmeterol 50 1 inh inhalation BID #1 ea 12/07/23 01/22/24 Rx mcg/dose blistr powdr for inhalation Allergies Allergy/AdvReac Type Severity Reaction Status Date / Time atorvastatin [From Lipitor] Allergy Verified 03/19/24 09:46 Beta-Blockers Allergy Verified 03/19/24 09:46 (Beta-Adrenergic Bloc cat dander Allergy Verified 03/19/24 09:46 cucumber Allergy Verified 03/19/24 09:46 duloxetine Allergy Verified 03/19/24 09:46 oxycodone [From Percocet] Allergy Verified 03/19/24 09:46 paroxetine [From Paxil] Allergy Verified 03/19/24 09:46 prochlorperazine Allergy Verified 03/19/24 09:46 [From Compazine] promethazine Allergy Verified 03/19/24 09:46 Sulfa (Sulfonamide Allergy Verified 03/19/24 09:46 Antibiotics) Exam Narrative Exam Narrative: Oropharynx free of lesions Chest clear to auscultation percussion Cardiac exam reveals no S3 or murmur Assessment & Plan Assessment & Plan narrative: Worsening nausea over time need to have upper endoscopy to rule out worsening peptic disease or stenosis. Risks benefits and alternatives have been explained. Time-Based Coding :: [TOTAL MINUTES] spent with patient and on the chart (including review of chart, obtaining history, exam, reviewing outside data, placing orders, documenting exam and treatment plan, and counseling patient) on [DATE].
[2024-03-19 10:40] VITALS: BP 118/67; PULSE 75; RESP 18; TEMP 36.6; O2SAT 95
[2024-03-19 10:45] VITALS: BP 120/74; PULSE 67; RESP 20; O2SAT 96
[2024-03-19 10:49] VITALS: BP 115/51; PULSE 70; RESP 14; TEMP 36.1; O2SAT 96
== END 2024-03-19 11:01 | disposition home or self-care (01) ==
PROVIDERS: PCP Family Medicine; Referring Provider Internal Medicine Gastroenterology; Visit Provider Internal Medicine Gastroenterology
PROC: 0DJ08ZZ Inspection of Upper Intestinal Tract, Via Natural or Artificial Opening Endoscopic (ICD-10-PCS; CPT 43235; principal; 2024-03-19 10:30)
DX: R11.0 Nausea (principal); K31.89 Other diseases of stomach and duodenum
CPT/HCPCS: 43239; J2704

== ENCOUNTER → 2024-08-06 11:47 | Outpatient (CLI) | payer OTHER, MEDICARE, SELFPAY ==
--- NOTE | 2024-08-06 11:50 | DI.MRI.S_ITS ---
PROCEDURE: MR CERVICAL SPINE WO CON INDICATIONS: RADICULOPATHY CERVICOTHORACIC REGION TECHNIQUE: Noncontrast sagittal T1 spin echo and T2 fast spin echo, sagittal STIR, foraminal oblique sagittal T2 fast spin echo, and axial gradient echo or T2 fast spin echo through the cervical spine. COMPARISON: [facility], MR, MR CERVICAL SPINE WO CON, 10/11/2022, 11:56. FINDINGS: Image quality: Excellent. Alignment and Curvature: There is mild straightening of normal cervical lordosis. Bone Marrow: There is no marrow edema. No acute fracture or dislocation. Spinal Cord: Visualized spinal cord has normal size and signal. No cerebellar tonsillar herniation. Paraspinous Soft Tissues: No paravertebral masses. Prevertebral soft tissues are normal in thickness. C2-C3: Disc desiccation. Mild central to right-sided disc bulge with effacement of thecal sac anteriorly. Bilateral uncovertebral hypertrophic changes are seen. No significant neural foraminal narrowing. C3-C4: Loss of disc height and disc signal. Broad-based disc bulge and central to left-sided disc herniation with bilateral uncovertebral hypertrophic changes causing mild central canal stenosis, moderate left-sided neural foraminal narrowing. Bulging disc likely contacting left C4 nerve root. C4-C5: Disc desiccation and loss of disc height. Broad-based disc bulge and bilateral uncovertebral hypertrophic changes causing moderate central canal stenosis and moderate to severe right-sided neural foraminal narrowing and moderate left-sided neural foraminal narrowing. Bulging disc likely contacting bilateral C5 nerve roots. C5-C6: Loss of disc height and disc desiccation. Broad-based disc bulge and bilateral uncovertebral hypertrophic changes are seen with moderate central canal stenosis, severe left-sided neural foraminal narrowing and moderate right-sided neural foraminal narrowing. There is likely compression of bilateral C6 nerve roots. C6-C7: Loss of disc height and disc desiccation. Broad-based disc bulge and bilateral uncovertebral hypertrophic changes are seen causing moderate central canal stenosis and moderate right worse than left bilateral neural foraminal narrowing. C7-T1: Normal appearance. IMPRESSION: 1. No marrow edema. No acute fracture or dislocation. No abnormal cervical spinal cord signal. 2. Multilevel spondylitic changes throughout cervical spine causing various degrees of central canal stenosis and bilateral neural foraminal narrowing worsened compared to 2022 study particularly at C4-5 through C6-7 levels. Dictated by: Carter Vyas M.D. on 08/06/2024 at 17:09 Approved by: Carter Vyas M.D. on 08/06/2024 at 17:13
== END ==
PROVIDERS: PCP Family Medicine; Referring Provider Psychiatry & Neurology Neurology; Visit Provider Psychiatry & Neurology Neurology
DX: M47.22 Other spondylosis with radiculopathy, cervical region; M48.02 Spinal stenosis, cervical region
CPT/HCPCS: 72141

== ENCOUNTER → 2024-08-06 11:51 | Outpatient (CLI) | payer OTHER, MEDICARE, SELFPAY ==
--- NOTE | 2024-08-06 | DI.US.S_ITS ---
PROCEDURE: US RENAL COMPLETE INDICATIONS: Renal mass TECHNIQUE: Real-time scanning was performed of the kidneys and bladder, with image documentation. Thirty images. COMPARISON: Merged With [facility], , US RENAL COMPLETE, 05/09/2023, 8:04. FINDINGS: Again noted is the area of increased echogenicity which correlates to fat echogenicity measuring up to 1.9 x 1.0 by 1.1 cm interpolar region left kidney previously measured approximately 1.8 x 1.2 x 0.9 cm suspicious for angiomyolipoma or other fatty lesion. Kidneys: Kidneys are normal in size. Right kidney measures 10.6 cm long; left kidney measures 10.7 cm long. Right renal cortical thickness is 1.8 cm; left renal cortical thickness is 1.9 cm. Renal cortical echotexture is normal. No hydronephrosis or nephrolithiasis. Several bilateral renal cysts the largest on the right measuring up to 2.1 cm and largest on the left 3.2 cm relatively unchanged. Bladder: Pre-void bladder volume is 83 mL. Post-void residual is 0 mL. Pre-void images demonstrate no intraluminal masses or stones. On pre-void images, bilateral ureteral jets are noted with color Doppler interrogation. Miscellaneous: No free pelvic fluid. 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 Bilateral renal cysts unchanged. No new lesion. No hydronephrosis. If symptoms persist or worsen, or there is high clinical suspicion of renal or other abdominal pelvic abnormality, CT or MRI could be performed. Dictated by: Lamont Conway M.D. on 08/06/2024 at 16:14 Approved by: Lamont Conway M.D. on 08/06/2024 at 16:20
== END ==
PROVIDERS: PCP Family Medicine; Referring Provider Urology; Visit Provider Urology
DX: N28.89 Other specified disorders of kidney and ureter (principal); N28.1 Cyst of kidney, acquired; M47.22 Other spondylosis with radiculopathy, cervical region; M48.02 Spinal stenosis, cervical region
CPT/HCPCS: 72141; 76770

== ENCOUNTER → 2025-01-16 09:51 | Outpatient (CLI) | payer OTHER, MEDICARE, SELFPAY ==
--- NOTE | 2025-01-16 09:53 | DI.CT.S_ITS ---
PROCEDURE: CT CHEST WO CON INDICATIONS: H/o pulmonary nodule, evaluate for change TECHNIQUE: Noncontrast 5 mm thick sections acquired from the pulmonary apices to the posterior costophrenic angles. 1 mm lung window, 5 mm thick coronal and sagittal and 7 mm axial MIP reformats were then acquired. For radiation dose reduction, the following was used: automated exposure control, adjustment of mA and/or kV according to patient size. COMPARISON: [facility], CT, CT ABDOMEN PELVIS W CON, 09/03/2022, 14:56. [facility], CT, CT CHEST WO CON, 05/09/2023, 8:02. FINDINGS: Image quality: Diagnostic. Lower Neck: No enlarged lymph nodes. Thyroid: No thyroid nodules which require sonographic follow up, per consensus guidelines. Axillae: No enlarged lymph nodes. Chest Wall: Right breast coarse calcifications. Bones: Unremarkable. Lungs and Pleura: No pneumothorax or pleural effusions. Increased fat component of the left lower lobe nodule. This nodule remains unchanged in size, measuring 1.4 x 1.0 centimeter. Heart: Heart size is normal. No pericardial effusion. Thoracic Vessels: The aorta and pulmonary arteries demonstrate normal size. Mediastinum and Renetta: No enlarged lymph nodes. Esophagus: No wall thickening. No hiatal hernia. Upper Abdomen: Visualized upper abdomen solid organs and bowel loops appear normal. IMPRESSION: Stable size of the left lower lobe solid nodule. The nodule has increased fat attenuation compared with prior. 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 No further follow-up is indicated. Dictated by: Ja Pleitez M.D. on 01/16/2025 at 10:24 Approved by: Ja Pleitez M.D. on 01/16/2025 at 11:11
== END ==
LOC: CT 09:52
PROVIDERS: PCP Family Medicine; Referring Provider Family Medicine; Visit Provider Internal Medicine Critical Care Medicine
DX: R91.1 Solitary pulmonary nodule (principal); E04.1 Nontoxic single thyroid nodule
CPT/HCPCS: 71250; 76536

== ENCOUNTER → 2025-01-16 09:53 | Outpatient (CLI) | payer OTHER, MEDICARE, SELFPAY ==
--- NOTE | 2025-01-16 09:55 | DI.US.S_ITS ---
PROCEDURE: US THYROID INDICATIONS: NODULE TECHNIQUE: Real-time scanning was performed of the thyroid gland, with image documentation. COMPARISON: None. FINDINGS: Thyroid: Right lobe measures 3.4 cm. Left lobe measures 2.4 cm. Isthmus is 0.3 cm thick. Echotexture is heterogeneous. Nodule number: 1 Location: Right inferior Size: 1.9 x 1.2 x 1.4 cm. Composition: Solid Echogenicity: Hypoechoic and isoechoic areas Shape: wider than tall. Margins: Smooth Echogenic foci: None Total points: 4 ACR TI-RADS category: 4 IMPRESSION: There is a TI-RADS 4 nodule in the right lobe measuring up to 1.9 cm. ACR TI-RADS definitions and recommendations: TI-RADS 1 (benign): 0 points. FNA not needed. TI-RADS 2 (not suspicious): 2 points. FNA not needed. TI-RADS 3: 3 points. * FNA if 2.5 cm or larger, follow up if 1.5 cm or larger (at 1, 3, and 5 years). TI-RADS 4: 4-6 points. * FNA if 1.5 cm or larger, follow up if 1 cm or larger (at 1, 2, 3, and 5 years). TI-RADS 5: 7 points or more. * FNA if 1 cm or larger, follow up if 0.5 cm or larger (every year for 5 years). Dictated by: Ruslan Sullivan M.D. on 01/18/2025 at 20:05 Approved by: Ruslan Sullivan M.D. on 01/18/2025 at 20:09
== END ==
LOC: US 09:54
PROVIDERS: PCP Family Medicine; Referring Provider Family Medicine; Visit Provider Family Medicine
DX: E04.1 Nontoxic single thyroid nodule (principal)
CPT/HCPCS: 76536

== ENCOUNTER → 2025-04-02 09:42 | Outpatient (CLI) | payer OTHER, MEDICARE, SELFPAY ==
--- NOTE | 2025-04-02 09:43 | DI.RAD.S_ITS ---
PROCEDURE: XR DEXA AXIAL SKELETON INDICATIONS: Asymptomatic menopausal state COMPARISON: None. FINDINGS: Lumbar Spine: Bone mineral density 1.142 g/cm2, T score 0.8,. L2 excluded. Left Femoral Neck: Bone mineral density 0.60 g/cm2, T score -2.2. Left Hip: Bone mineral density 0.942 g/cm2, T score 0.0,. Fracture Risk Calculation (when applicable): 10-year fracture risk of a major osteoporotic fracture 12 percent and of a hip fracture 2.4 percent. (T score greater or equal to -1.0 to: NORMAL) (T score from -1.1 to -2.4: OSTEOPENIA) (T score less than or equal to -2.5: OSTEOPOROSIS) IMPRESSION: Osteopenia. Follow-up guidelines as follows: Osteoporosis: Consider a repeat DEXA and Vertebral Fracture Assessment (VFA) exam in 2 years or sooner if medically necessary, to reassess this patient's status. Osteopenia: Consider a repeat DEXA in 2-3 years to reassess this patient's status, or if there is a new clinical indication. Normal: Consider a repeat DEXA in 5 years or sooner, or if there is a new clinical indication. All treatment decisions require clinical judgment and consideration of individual patient factors, including patient preferences, comorbidities, previous drug use, risk factors not captured in the FRAX model (e.g., frailty, falls, vitamin D deficiency, increased bone turnover, interval significant decline in bone density ) and possible under- or over-estimation of fracture risk by FRAX. In addition, the NOF Guide recommends that FDA-approved medical therapies be considered in postmenopausal women and men age >= 50 years with a: * Hip or vertebral (clinical or morphometric) fracture * T-score of <=-2.5 at the spine or hip * Ten-year fracture probability by FRAX of >= 3% for hip fracture or >=20% for major osteoporotic fracture. Dictated by: Fermín Desouza M.D. on 04/02/2025 at 11:02 Approved by: Fermín Desouza M.D. on 04/02/2025 at 11:04
== END ==
PROVIDERS: PCP Family Medicine; Referring Provider Family Medicine; Visit Provider Family Medicine
DX: M85.852 Other specified disorders of bone density and structure, left thigh (principal); Z78.0 Asymptomatic menopausal state
CPT/HCPCS: 77080